=== PATIENT | female | born 1985 | race Caucasian/White ===

== ENCOUNTER 2016-07-07 07:49 | Emergency (ER) | payer OTHER ==
[~2016-07-07] VITALS: Ht 165.1 cm; Wt 99.0 kg
[~2016-07-07 07:49] MED LIST: ATARAX,VISTARIL25 MG PO; BACTRIM,SEPT1 TABLET PO; BACTROBAN OINTM22 GM TP; BUPRENORPHIN-N1 EACH SL; BUPRENORPHINE HC8 MG SL; BUSPAR10 MG PO; BUSPAR15 MG PO; CATAPRES0.1 MG PO; CLINDAMYCIN HC300 MG PO; CLONAZEPAM0.5 MG PO; CLONIDINE HCL0.1 MG PO; CLONIDINE HCL0.2 MG PO; CYMBALTA30 MG PO; CYMBALTA60 MG PO; DEPAKOTE ER250 MG PO; DIVALPROEX SOD250 MG PO; DIVALPROEX SOD500 M1 PO; DOLOPHINE HCL10 MG PO; DULOXETINE HCL30 MG PO; FOLIC ACID1 MG PO; GABAPENTIN600 MG PO; GABAPENTIN800 MG PO; HYDROXYZINE PAM25 MG PO; HYDROXYZINE PAM50 MG PO; IBUPROFEN800 MG PO; IMODIUM A-D2 MG PO; KEFLEX500 MG PO; KLONOPIN1 MG; KLONOPIN1 MG PO; KWELL TP; LABETALOL HCL100 MG PO; LIBRIUM25 MG PO; METHADONE10 MG PO; METHADONE10 MG/1 M1 PO; MOTRIN800 MG PO; MULTIVITAMIN1 EAC2 PO; NAPROXEN500 MG PO; NEURONTIN300 MG PO; NICOTINE PATCH1 EAC2 TD; NORCO 10/3251 TABLET PO; PEN-VEE K,VEET500 MG PO; PERMETHRIN118 ML TP; PROAIR HFA8.5 GM IH; PROMETHAZINE HC25 M1 PO; QUETIAPINE FUM400 MG PO; QUETIAPINE FUMA50 MG PO; SEROQUEL XR50 MG PO; SEROQUEL200 MG PO; SEROQUEL400 MG PO; SEROQUEL50 MG PO; TRAZODONE HCL50 MG PO; VITAMIN B-1100 MG PO; XANAX XR2 MG PO; XANAX2 MG PO; ZOFRAN8 MG PO; ZOLPIDEM TARTRAT5 MG PO
[2016-07-07] MEDS ORDERED: IBUPROFEN800 MG PO (08:05)
[2016-07-07] MEDS ORDERED: PEN-VEE K,VEET500 MG PO (08:05)
[2016-07-07] MEDS ORDERED: AMPHETAMINE SAL20 MG PO (08:07)
[2016-07-07] MEDS ORDERED: MOTRIN800 MG PO (08:16)
[2016-07-07 08:33] VITALS: BP 171/104
== END 2016-07-07 08:56 | disposition home or self-care (01) ==
LOC: EME 07:49
PROC: 3E0T3BZ Introduction of Anesthetic Agent into Peripheral Nerves and Plexi, Percutaneous Approach (ICD-10-PCS; principal; 2016-07-07)
DX: K02.9 Dental caries, unspecified (principal); F11.20 Opioid dependence, uncomplicated; F17.200 Nicotine dependence, unspecified, uncomplicated
CPT/HCPCS: 99281; 99283

== ENCOUNTER 2016-08-17 10:21 | Emergency (ER) | payer OTHER ==
[~2016-08-17] VITALS: Ht 167.6 cm; Wt 90.8 kg
[~2016-08-17 10:21] MED LIST changes: +AMPHETAMINE SAL20 MG PO
[2016-08-17 11:13] LABS: EOSINOPHIL (%) 0.2 % (0-5); HEMATOCRIT 46.8 % (36.0-46.0); IMMATURE GRANULOCYTE (%) 0.7 % (0.0-0.7); IMMATURE GRANULOCYTE COUNT 0.1 K/uL; MCHC 33.3 G/DL (30.0-36.0); MEAN PLAT.VOLUME 10.6 uM^3 (9.5-12.4); MONOCYTE (%) 7.4 % (3-12); MONOCYTE COUNT 0.8 K/uL (0-0.8); NEUTROPHIL (%) 64.1 % (45-76); PLATELET COUNT 289 K/uL (156-360); RBC DIS.WIDTH-CV 12.5 % (11.8-14.6); RBC DIS.WIDTH-SD 42.5 % (39-53); RED BLOOD COUNT 5.03 M/uL (3.80-5.20); WHITE BLOOD COUNT 10.9 K/uL (4.1-10.2)
[2016-08-17 11:17] LABS: ADD MIUA? YES; BILIRUBIN NEGATIVE; BLOOD NEGATIVE; COLOR YELLOW ((YELLOW)); GLUCOSE (STRIP) NEGATIVE; KETONES 5; LEUKOCYTES NEGATIVE; NITRITE NEGATIVE; PROTEIN (STRIP) 100; SPECIFIC GRAVITY 1.013 (1.000-1.030); UROBILINOGEN 0.2 MG/DL (0.2-1.0)
[2016-08-17 11:23] LABS: CHLORIDE 101 mEq/L (99-109); POTASSIUM 3.8 mEq/L (3.7-5.4); SODIUM 138 mEq/L (136-147)
[2016-08-17 11:23] LABS: AMPHETAMINE PRESUMPTIVE POSITIVE (500 ng/mL); BACTERIA RARE /HPF; BARBITURATES NEGATIVE (200 ng/mL); BENZODIAZEPINES NEGATIVE (150 ng/mL); COCAINE NEGATIVE (150 ng/mL); EPITHELIAL CELLS 4+ /HPF; INTERNAL CONTROLS VALID? YES; METHADONE NEGATIVE (200 ng/mL); METHAMPHETAMINE NEGATIVE (500 ng/mL); MUCUS 1+ /LPF; OPIATES (MORPHINE) NEGATIVE (100 ng/mL); OXYCODONE NEGATIVE (100 ng/mL); PHENCYCLIDINE NEGATIVE (25 ng/mL); PROPOXYPHENE NEGATIVE (300 ng/mL); RED BLOOD CELLS 0-5 /HPF (0-5); THC CANNABINOIDS NEGATIVE (50 ng/mL); TRICYCLIC ANTIDEPRESSANTS PRESUMPTIVE POSITIVE (300 ng/mL); WHITE BLOOD CELLS 0-5 /HPF (0-5)
[2016-08-17 11:24] LABS: ADD MEDTOX COMMENT Y
[2016-08-17 11:26] LABS: GLUCOSE 122 mg/dL (70-99)
[2016-08-17 11:27] LABS: ANION GAP 14 MEQ/L (2-14); TOTAL BILIRUBIN 0.4 mg/dL (0.0-1.0)
[2016-08-17 11:29] LABS: ALKALINE PHOSPHATASE 120 IU/L (3-129); GFR ESTIMATE (CALCULATED) > 59 mL/min/; SERUM ETHYL ALCOHOL < 10 mg/dL
[2016-08-17 11:30] LABS: UREA NITROGEN (BUN) 7 mg/dL (9-23)
[2016-08-17 11:31] LABS: DIRECT BILIRUBIN 0.1 mg/dL (0.0-0.3)
[2016-08-17 11:38] LABS: QUANTITATIVE HCG < 4.0 MIU/ML
[2016-08-17 12:38] VITALS: BP 180/87
== END 2016-08-17 12:39 | disposition home or self-care (01) ==
LOC: EME 10:21
PROVIDERS: Emergency Medicine
DX: F19.10 Other psychoactive substance abuse, uncomplicated (principal); K21.9 Gastro-esophageal reflux disease without esophagitis; F17.200 Nicotine dependence, unspecified, uncomplicated
CPT/HCPCS: 80048; 80076; 81003; 84702; 84999; 85025; 99281; 99284; G0480

== ENCOUNTER 2016-08-23 10:49 | Inpatient (IN) | payer OTHER ==
[~2016-08-23] VITALS: Ht 167.6 cm; Wt 89.4 kg
[2016-08-23 12:44] LABS: INTERNAL CONTROL VALID? YES
[2016-08-23 12:53] LABS: AMPHETAMINE PRESUMPTIVE POSITIVE (500 ng/mL); BARBITURATES NEGATIVE (200 ng/mL); BENZODIAZEPINES NEGATIVE (150 ng/mL); COCAINE NEGATIVE (150 ng/mL); METHADONE NEGATIVE (200 ng/mL); METHAMPHETAMINE NEGATIVE (500 ng/mL); OPIATES (MORPHINE) NEGATIVE (100 ng/mL); PHENCYCLIDINE NEGATIVE (25 ng/mL); THC CANNABINOIDS NEGATIVE (50 ng/mL); TRICYCLIC ANTIDEPRESSANTS PRESUMPTIVE POSITIVE (300 ng/mL)
[2016-08-23] MEDS ORDERED: ABILIFY2 MG PO (12:53)
[2016-08-23 12:54] LABS: ADD MEDTOX COMMENT Y; INTERNAL CONTROLS VALID? YES; OXYCODONE NEGATIVE (100 ng/mL); PROPOXYPHENE NEGATIVE (300 ng/mL)
[2016-08-23] MEDS ORDERED: DEPAKOTE500 MG PO (12:54)
[2016-08-23] MEDS ORDERED: DEPAKOTE250 MG PO (12:54)
[2016-08-23] MEDS ORDERED: ADDERALL20 MG PO (12:55)
[2016-08-23] MEDS ORDERED: SUBOXONE 8 MG-1 EAC2 SL (12:55)
[2016-08-23] MEDS ORDERED: SEROQUEL400 MG PO (12:56)
[2016-08-23] MEDS ORDERED: SEROQUEL100 MG PO (12:56)
[2016-08-23 12:57] LABS: HEMATOCRIT 44.5 % (36.0-46.0); MCH 30.9 PG (29.0-34.0); MCHC 32.6 G/DL (30.0-36.0); MCV 94.9 FL (83-99); RBC DIS.WIDTH-CV 12.5 % (11.8-14.6); RBC DIS.WIDTH-SD 43.4 % (39-53); RED BLOOD COUNT 4.69 M/uL (3.80-5.20); WHITE BLOOD COUNT 8.6 K/uL (4.1-10.2)
[2016-08-23 13:02] LABS: CHLORIDE 107 mEq/L (99-109); POTASSIUM 4.3 mEq/L (3.7-5.4); SODIUM 141 mEq/L (136-147)
[2016-08-23 13:03] LABS: GLUCOSE 92 mg/dL (70-99)
[2016-08-23 13:05] LABS: ANION GAP 13 MEQ/L (2-14)
[2016-08-23 13:07] LABS: GFR ESTIMATE (CALCULATED) > 59 mL/min/; SERUM ETHYL ALCOHOL < 10 mg/dL
[2016-08-23 13:08] LABS: UREA NITROGEN (BUN) 10 mg/dL (9-23)
[2016-08-23] MEDS ORDERED: MOTRIN800 MG PO (14:14)
[2016-08-23] MEDS ORDERED: GARCINIA CAMBO1 EACH PO (14:16)
[2016-08-23 15:21] VITALS: BP 151/89
[2016-08-23 15:37] LABS: MEAN PLAT.VOLUME 10.2 uM^3 (9.5-12.4)
[2016-08-23 15:40] LABS: PLATELET COUNT 202 K/uL (156-360)
[2016-08-23] MEDS ORDERED: QUETIAPINE FUM300 MG PO (16:29)
[2016-08-24 08:15] VITALS: BP 128/74
[2016-08-24 15:38] VITALS: BP 125/74
[2016-08-25 07:44] VITALS: BP 126/82
[2016-08-25 16:10] VITALS: BP 119/72
[2016-08-26 07:57] VITALS: BP 117/72
[2016-08-26 08:00] VITALS: BP 117/72
[2016-08-26 15:41] VITALS: BP 124/72
[2016-08-27 07:29] VITALS: BP 124/66
[2016-08-27 15:34] VITALS: BP 125/71
[2016-08-28 07:51] VITALS: BP 128/72
== END 2016-08-28 12:36 | disposition home or self-care (01) | DRG 885 ==
LOC: EME 10:49 → EDOF 13:41 → 1WEST 13:41
PROVIDERS: Emergency Medicine
DX: F33.1 Major depressive disorder, recurrent, moderate (principal); F11.21 Opioid dependence, in remission; R45.851 Suicidal ideations; E66.9 Obesity, unspecified; Z68.31 Body mass index [BMI] 31.0-31.9, adult
CPT/HCPCS: 80048; 84703; 84999; 85027; 90839; 97150 GO; 97166 GO; 99281; 99285; G0480; J0574

== ENCOUNTER 2016-09-16 07:57 | Inpatient (IN) | payer OTHER ==
[~2016-09-16] VITALS: Ht 167.6 cm; Wt 90.9 kg
[~2016-09-16 07:57] MED LIST changes: +ABILIFY2 MG PO; +ADDERALL20 MG PO; +DEPAKOTE250 MG PO; +DEPAKOTE500 MG PO; +GARCINIA CAMBO1 EACH PO; +QUETIAPINE FUM300 MG PO; +SEROQUEL100 MG PO; +SUBOXONE 8 MG-1 EAC2 SL
[2016-09-16 09:07] LABS: EOSINOPHIL (%) 0.9 % (0-5); EOSINOPHIL COUNT 0.1 K/uL (0-0.3); HEMATOCRIT 43.5 % (36.0-46.0); IMMATURE GRANULOCYTE (%) 0.2 % (0.0-0.7); INSTRUMENT ABS NEUTROPHIL CT 5.4 K/uL; LYMPHOCYTE COUNT 2.6 K/uL (1.0-2.8); MCH 30.6 PG (29.0-34.0); MCHC 33.6 G/DL (30.0-36.0); MCV 91.2 FL (83-99); MEAN PLAT.VOLUME 10.6 uM^3 (9.5-12.4); MONOCYTE (%) 5.7 % (3-12); MONOCYTE COUNT 0.5 K/uL (0-0.8); NEUTROPHIL (%) 62.7 % (45-76); NEUTROPHIL COUNT 5.4 K/uL (1.8-6.4); PLATELET COUNT 256 K/uL (156-360); RBC DIS.WIDTH-CV 12.1 % (11.8-14.6); RBC DIS.WIDTH-SD 40.6 % (39-53); RED BLOOD COUNT 4.77 M/uL (3.80-5.20); WHITE BLOOD COUNT 8.6 K/uL (4.1-10.2)
[2016-09-16 09:14] LABS: CHLORIDE 108 mEq/L (99-109); SODIUM 143 mEq/L (136-147)
[2016-09-16 09:15] LABS: GLUCOSE 79 mg/dL (70-99)
[2016-09-16 09:17] LABS: ANION GAP 14 MEQ/L (2-14)
[2016-09-16 09:18] LABS: SERUM ETHYL ALCOHOL < 10 mg/dL
[2016-09-16 09:19] LABS: GFR ESTIMATE (CALCULATED) > 59 mL/min/
[2016-09-16 09:20] LABS: UREA NITROGEN (BUN) 11 mg/dL (9-23)
[2016-09-16 09:30] LABS: ADD MIUA? YES; BILIRUBIN NEGATIVE; BLOOD NEGATIVE; GLUCOSE (STRIP) NEGATIVE; KETONES NEGATIVE; LEUKOCYTES MODERATE; NITRITE NEGATIVE; PROTEIN (STRIP) 100; SPECIFIC GRAVITY 1.029 (1.000-1.030)
[2016-09-16 09:32] LABS: QUANTITATIVE HCG < 4.0 MIU/ML
[2016-09-16 09:34] LABS: COLOR YELLOW ((YELLOW))
[2016-09-16 09:54] LABS: ADD MEDTOX COMMENT Y; AMPHETAMINE PRESUMPTIVE POSITIVE (500 ng/mL); BARBITURATES NEGATIVE (200 ng/mL); BENZODIAZEPINES PRESUMPTIVE POSITIVE (150 ng/mL); COCAINE NEGATIVE (150 ng/mL); INTERNAL CONTROLS VALID? YES; METHADONE NEGATIVE (200 ng/mL); METHAMPHETAMINE NEGATIVE (500 ng/mL); OPIATES (MORPHINE) NEGATIVE (100 ng/mL); OXYCODONE NEGATIVE (100 ng/mL); PHENCYCLIDINE NEGATIVE (25 ng/mL); PROPOXYPHENE NEGATIVE (300 ng/mL); THC CANNABINOIDS NEGATIVE (50 ng/mL); TRICYCLIC ANTIDEPRESSANTS PRESUMPTIVE POSITIVE (300 ng/mL)
[2016-09-16 09:59] LABS: AMORPHOUS URATES CRYSTALS 3+; BACTERIA NONE SEEN /HPF; CASTS NONE SEEN /LPF; CRYSTALS PRESENT; EPITHELIAL CELLS 3+ /HPF; MUCUS NONE SEEN /LPF; RED BLOOD CELLS 0-5 /HPF (0-5); WHITE BLOOD CELLS 0-5 /HPF (0-5)
[2016-09-16 10:39] LABS: BENZODIAZEPINES QUANT VALUE 0 NG/ML
[2016-09-16 10:44] LABS: BENZODIAZEPINES, URINE SCREEN Negative (200 ng/mL)
[2016-09-16] MEDS ORDERED: IBUPROFEN800 MG PO (11:57)
[2016-09-16] MEDS ORDERED: QUETIAPINE FUM300 MG PO (11:57)
[2016-09-16 12:00] VITALS: BP 140/95
[2016-09-16 12:01] VITALS: BP 140/95
[2016-09-16 15:50] VITALS: BP 138/67
[2016-09-17 08:02] VITALS: BP 114/74
[2016-09-17 15:18] VITALS: BP 113/56
[2016-09-18 07:40] VITALS: BP 137/73
[2016-09-18 15:14] VITALS: BP 133/93
[2016-09-19 09:10] VITALS: BP 134/79
[2016-09-19 15:26] VITALS: BP 125/73
[2016-09-20 07:55] VITALS: BP 140/78
[2016-09-20 15:34] VITALS: BP 136/86
[2016-09-21 08:03] VITALS: BP 116/65
[2016-09-21 15:56] VITALS: BP 113/65
[2016-09-22 07:34] VITALS: BP 115/76
[2016-09-22 15:21] VITALS: BP 108/55
[2016-09-23 08:00] VITALS: BP 135/79
[2016-09-23] MEDS ORDERED: QUETIAPINE FUM300 MG PO (09:34)
[2016-09-23] MEDS ORDERED: SEROQUEL100 MG PO (09:34)
[2016-09-23] MEDS ORDERED: PRAZOSIN HCL1 MG PO (09:34)
[2016-09-23] MEDS ORDERED: DULOXETINE HCL60 MG PO (09:34)
[2016-09-23] MEDS ORDERED: DEPAKOTE500 MG PO (09:34)
== END 2016-09-23 12:29 | disposition home or self-care (01) | DRG 885 ==
LOC: EME 07:57 → EDOF 10:27 → 1WEST 10:27
PROVIDERS: Physician Assistant
DX: F33.9 Major depressive disorder, recurrent, unspecified (principal); F60.9 Personality disorder, unspecified; R45.851 Suicidal ideations; K21.9 Gastro-esophageal reflux disease without esophagitis; I10 Essential (primary) hypertension
CPT/HCPCS: 80048; 80164; 81003; 84702; 84999; 85025; 90839; 97150 GO; 97165 GO; 99281; 99284; G0480; J0574; Q0177

== ENCOUNTER 2016-10-25 07:44 | Emergency (ER) | payer OTHER ==
[~2016-10-25] VITALS: Ht 167.6 cm; Wt 92.4 kg
[~2016-10-25 07:44] MED LIST changes: +DULOXETINE HCL60 MG PO; +PRAZOSIN HCL1 MG PO
[2016-10-25 08:46] VITALS: BP 148/89
== END 2016-10-25 08:46 | disposition left against medical advice (07) ==
LOC: EME 07:44
DX: T50.991A Poisoning by other drugs, medicaments and biological substances, accidental (unintentional), initial encounter (principal); F17.200 Nicotine dependence, unspecified, uncomplicated
CPT/HCPCS: 99281; 99284

== ENCOUNTER 2016-11-02 15:59 | Emergency (ER) | payer OTHER ==
[~2016-11-02] VITALS: Ht 167.6 cm; Wt 95.4 kg
[2016-11-02 16:38] VITALS: BP 175/104
== END 2016-11-02 16:39 | disposition left against medical advice (07) ==
LOC: EME 15:59
DX: T50.991A Poisoning by other drugs, medicaments and biological substances, accidental (unintentional), initial encounter (principal); F31.9 Bipolar disorder, unspecified; G40.909 Epilepsy, unspecified, not intractable, without status epilepticus; F17.200 Nicotine dependence, unspecified, uncomplicated
CPT/HCPCS: 99281; 99283

== ENCOUNTER 2016-12-31 05:30 | Emergency (ER) | payer OTHER ==
[~2016-12-31] VITALS: Ht 167.6 cm; Wt 96.0 kg
[2016-12-31] MEDS ORDERED: ATARAX,VISTARIL25 MG PO (06:46)
[2016-12-31 07:29] VITALS: BP 136/96
== END 2016-12-31 07:40 | disposition home or self-care (01) ==
LOC: EME → EDBD 05:30 → EME 07:40
DX: G47.00 Insomnia, unspecified (principal); F41.9 Anxiety disorder, unspecified; F17.200 Nicotine dependence, unspecified, uncomplicated
CPT/HCPCS: 99281; 99283

== ENCOUNTER 2017-01-07 23:25 | Emergency (ER) | payer OTHER ==
[~2017-01-07] VITALS: Ht 167.6 cm; Wt 93.6 kg
[2017-01-07 23:37] VITALS: BP 146/92
[2017-01-08 00:44] LABS: HEMATOCRIT 39.3 % (36.0-46.0); MCH 30.6 PG (29.0-34.0); MCHC 33.6 G/DL (30.0-36.0); MEAN PLAT.VOLUME 10.4 uM^3 (9.5-12.4); PLATELET COUNT 249 K/uL (156-360); RBC DIS.WIDTH-SD 40.6 % (39-53); RED BLOOD COUNT 4.32 M/uL (3.80-5.20); WHITE BLOOD COUNT 11.7 K/uL (4.1-10.2)
[2017-01-08 00:57] LABS: CHLORIDE 102 mEq/L (99-109); POTASSIUM 4.3 mEq/L (3.7-5.4); SODIUM 137 mEq/L (136-147)
[2017-01-08 00:59] LABS: GLUCOSE 76 mg/dL (70-99)
[2017-01-08 01:00] LABS: ANION GAP 11 MEQ/L (2-14)
[2017-01-08 01:02] LABS: SERUM ETHYL ALCOHOL < 10 mg/dL
[2017-01-08 01:03] LABS: GFR ESTIMATE (CALCULATED) > 59 mL/min/
[2017-01-08 01:04] LABS: UREA NITROGEN (BUN) 8 mg/dL (9-23)
[2017-01-08 01:14] LABS: QUANTITATIVE HCG < 4.0 MIU/ML
== END 2017-01-08 01:30 | disposition left against medical advice (07) ==
LOC: EME 23:25
DX: F32.9 Major depressive disorder, single episode, unspecified (principal); Z53.21 Procedure and treatment not carried out due to patient leaving prior to being seen by health care provider
CPT/HCPCS: 80048; 84702; 85027; G0480

== ENCOUNTER 2017-01-09 01:36 | Inpatient (IN) | payer OTHER ==
[~2017-01-09] VITALS: Ht 167.6 cm; Wt 91.8 kg
[2017-01-09 03:02] LABS: EOSINOPHIL (%) 1.3 % (0-5); EOSINOPHIL COUNT 0.2 K/uL (0-0.3); HEMATOCRIT 42.1 % (36.0-46.0); IMMATURE GRANULOCYTE (%) 0.9 % (0.0-0.7); IMMATURE GRANULOCYTE COUNT 0.1 K/uL; INSTRUMENT ABS NEUTROPHIL CT 8.1 K/uL; LYMPHOCYTE COUNT 3.2 K/uL (1.0-2.8); MCH 30.1 PG (29.0-34.0); MCHC 32.8 G/DL (30.0-36.0); MCV 91.7 FL (83-99); MEAN PLAT.VOLUME 9.9 uM^3 (9.5-12.4); MONOCYTE COUNT 1.2 K/uL (0-0.8); NEUTROPHIL (%) 63.6 % (45-76); NEUTROPHIL COUNT 8.1 K/uL (1.8-6.4); PLATELET COUNT 292 K/uL (156-360); RBC DIS.WIDTH-CV 12.3 % (11.8-14.6); RBC DIS.WIDTH-SD 41.1 % (39-53); RED BLOOD COUNT 4.59 M/uL (3.80-5.20); WHITE BLOOD COUNT 12.8 K/uL (4.1-10.2)
[2017-01-09 03:08] LABS: AMPHETAMINE NEGATIVE (500 ng/mL); BARBITURATES NEGATIVE (200 ng/mL); BENZODIAZEPINES NEGATIVE (150 ng/mL); COCAINE NEGATIVE (150 ng/mL); INTERNAL CONTROLS VALID? YES; METHADONE NEGATIVE (200 ng/mL); METHAMPHETAMINE NEGATIVE (500 ng/mL); OPIATES (MORPHINE) NEGATIVE (100 ng/mL); OXYCODONE NEGATIVE (100 ng/mL); PHENCYCLIDINE NEGATIVE (25 ng/mL); PROPOXYPHENE NEGATIVE (300 ng/mL); THC CANNABINOIDS NEGATIVE (50 ng/mL); TRICYCLIC ANTIDEPRESSANTS PRESUMPTIVE POSITIVE (300 ng/mL)
[2017-01-09 03:14] LABS: CHLORIDE 101 mEq/L (99-109); POTASSIUM 3.8 mEq/L (3.7-5.4); SODIUM 138 mEq/L (136-147)
[2017-01-09 03:16] LABS: GLUCOSE 75 mg/dL (70-99)
[2017-01-09 03:17] LABS: ANION GAP 14 MEQ/L (2-14)
[2017-01-09 03:19] LABS: SERUM ETHYL ALCOHOL < 10 mg/dL
[2017-01-09 03:20] LABS: GFR ESTIMATE (CALCULATED) > 59 mL/min/
[2017-01-09 03:21] LABS: UREA NITROGEN (BUN) 7 mg/dL (9-23)
[2017-01-09 04:58] VITALS: BP 145/69
[2017-01-09 07:45] VITALS: BP 109/56
[2017-01-09 15:39] VITALS: BP 108/72
[2017-01-10 07:51] VITALS: BP 114/66
[2017-01-10 15:26] VITALS: BP 125/68
[2017-01-11 07:46] VITALS: BP 145/65
[2017-01-11 16:13] VITALS: BP 118/61
[2017-01-12 08:23] LABS: HEMATOCRIT 43.3 % (36.0-46.0); MCH 31.7 PG (29.0-34.0); MCHC 33.7 G/DL (30.0-36.0); MCV 94.1 FL (83-99); MEAN PLAT.VOLUME 9.9 uM^3 (9.5-12.4); PLATELET COUNT 311 K/uL (156-360); RBC DIS.WIDTH-CV 12.3 % (11.8-14.6); WHITE BLOOD COUNT 11.7 K/uL (4.1-10.2)
[2017-01-12 08:53] VITALS: BP 150/78
[2017-01-12 16:33] VITALS: BP 147/84
[2017-01-13 07:49] VITALS: BP 147/61
[2017-01-13 11:34] VITALS: BP 118/82
[2017-01-13 15:26] VITALS: BP 124/73
[2017-01-14 07:33] VITALS: BP 136/77
== END 2017-01-14 11:25 | disposition home or self-care (01) | DRG 881 ==
LOC: EME 01:36 → EDOF 03:30 → 1WEST 03:30 → ENRESERV 04:37 → 1WEST 04:54
PROVIDERS: Emergency Medicine; Psychiatry & Neurology Psychiatry
DX: F32.9 Major depressive disorder, single episode, unspecified (principal); F25.9 Schizoaffective disorder, unspecified; F11.20 Opioid dependence, uncomplicated; T43.622A Poisoning by amphetamines, intentional self-harm, initial encounter; F19.959 Other psychoactive substance use, unspecified with psychoactive substance-induced psychotic disorder, unspecified; F17.200 Nicotine dependence, unspecified, uncomplicated; F41.9 Anxiety disorder, unspecified; I10 Essential (primary) hypertension; K21.9 Gastro-esophageal reflux disease without esophagitis; F60.9 Personality disorder, unspecified; Z79.899 Other long term (current) drug therapy; Z68.33 Body mass index [BMI] 33.0-33.9, adult; Z91.14 Patient's other noncompliance with medication regimen
CPT/HCPCS: 80048; 84702; 85025; 85027; 90839; 97150 GO; 97165 GO; 99281; 99285; G0480; J0574; Q0177

== ENCOUNTER → 2017-02-24 20:16 | Emergency (ER) | payer OTHER ==
[~2017-02-24] VITALS: Ht 167.6 cm; Wt 92.7 kg
[2017-02-24 20:24] VITALS: BP 182/98
== END | disposition left against medical advice (07) ==
LOC: EME 20:16
DX: R07.9 Chest pain, unspecified (principal); R07.0 Pain in throat; Z53.21 Procedure and treatment not carried out due to patient leaving prior to being seen by health care provider
CPT/HCPCS: 80048; 84484; 85027; 93005

== ENCOUNTER 2017-02-26 04:00 | Emergency (ER) | payer OTHER ==
[~2017-02-26] VITALS: Ht 160 cm; Wt 86.1 kg
[2017-02-26 05:15] LABS: HEMATOCRIT 39.1 % (36.0-46.0); MCH 30.4 PG (29.0-34.0); MCHC 33.2 G/DL (30.0-36.0); MCV 91.6 FL (83-99); MEAN PLAT.VOLUME 9.8 uM^3 (9.5-12.4); PLATELET COUNT 246 K/uL (156-360); RBC DIS.WIDTH-CV 13.2 % (11.8-14.6); RBC DIS.WIDTH-SD 44.1 % (39-53); RED BLOOD COUNT 4.27 M/uL (3.80-5.20); WHITE BLOOD COUNT 8.4 K/uL (4.1-10.2)
[2017-02-26 05:21] LABS: POTASSIUM ND MEQ/L (3.7-5.4)
[2017-02-26 05:25] LABS: CHLORIDE 104 mEq/L (99-109); SODIUM 137 mEq/L (136-147)
[2017-02-26 05:27] LABS: GLUCOSE 126 mg/dL (70-99)
[2017-02-26 05:28] LABS: ANION GAP 9 MEQ/L (2-14)
[2017-02-26 05:30] LABS: SERUM ETHYL ALCOHOL < 10 mg/dL
[2017-02-26 05:31] LABS: GFR ESTIMATE (CALCULATED) > 59 mL/min/
[2017-02-26 05:32] LABS: UREA NITROGEN (BUN) 14 mg/dL (9-23)
[2017-02-26 05:39] LABS: QUANTITATIVE HCG < 4.0 MIU/ML
[2017-02-26 05:48] LABS: ADD MIUA? YES; BILIRUBIN SMALL; BLOOD NEGATIVE; COLOR AMBER ((YELLOW)); GLUCOSE (STRIP) NEGATIVE; KETONES 5; LEUKOCYTES TRACE; NITRITE NEGATIVE; PROTEIN (STRIP) 30
[2017-02-26 05:50] LABS: PHENCYCLIDINE NEGATIVE (25 ng/mL); THC CANNABINOIDS NEGATIVE (50 ng/mL)
[2017-02-26 05:51] LABS: ADD MEDTOX COMMENT Y; AMPHETAMINE PRESUMPTIVE POSITIVE (500 ng/mL); BARBITURATES NEGATIVE (200 ng/mL); BENZODIAZEPINES NEGATIVE (150 ng/mL); COCAINE NEGATIVE (150 ng/mL); INTERNAL CONTROLS VALID? YES; METHADONE NEGATIVE (200 ng/mL); METHAMPHETAMINE NEGATIVE (500 ng/mL); OPIATES (MORPHINE) NEGATIVE (100 ng/mL); OXYCODONE NEGATIVE (100 ng/mL); PROPOXYPHENE NEGATIVE (300 ng/mL); TRICYCLIC ANTIDEPRESSANTS PRESUMPTIVE POSITIVE (300 ng/mL)
[2017-02-26] MEDS ORDERED: CYMBALTA60 MG PO (06:13)
[2017-02-26] MEDS ORDERED: ADDERALL20 MG PO (06:14)
[2017-02-26 06:25] LABS: BACTERIA RARE /HPF; EPITHELIAL CELLS 2+ /HPF; MUCUS 1+ /LPF; UCUL ADDED? NO; WHITE BLOOD CELLS 0-5 /HPF (0-5)
[2017-02-26 11:49] VITALS: BP 135/84
== END 2017-02-26 12:00 ==
LOC: EME → EDBD 04:00 → EME 12:00
PROVIDERS: Emergency Medicine
DX: R44.2 Other hallucinations (principal); R44.0 Auditory hallucinations; L29.0 Pruritus ani; R45.851 Suicidal ideations; F33.2 Major depressive disorder, recurrent severe without psychotic features; F60.9 Personality disorder, unspecified; K21.9 Gastro-esophageal reflux disease without esophagitis; F17.200 Nicotine dependence, unspecified, uncomplicated
CPT/HCPCS: 80048; 81003; 84702; 84999; 85027; 90837; 99281; 99285; G0480; J0574

== ENCOUNTER 2017-03-10 15:42 | Emergency (ER) | payer OTHER ==
[~2017-03-10] VITALS: Ht 167.6 cm; Wt 94.4 kg
[2017-03-10 16:36] LABS: HEMATOCRIT 41.3 % (36.0-46.0); MCH 30.8 PG (29.0-34.0); MCHC 33.2 G/DL (30.0-36.0); MCV 92.8 FL (83-99); MEAN PLAT.VOLUME 10.6 uM^3 (9.5-12.4); PLATELET COUNT 205 K/uL (156-360); RBC DIS.WIDTH-CV 12.9 % (11.8-14.6); RBC DIS.WIDTH-SD 44.1 % (39-53); RED BLOOD COUNT 4.45 M/uL (3.80-5.20); WHITE BLOOD COUNT 7.5 K/uL (4.1-10.2)
[2017-03-10 16:39] LABS: ADD MIUA? YES; BILIRUBIN NEGATIVE; BLOOD NEGATIVE; COLOR YELLOW ((YELLOW)); GLUCOSE (STRIP) NEGATIVE; KETONES NEGATIVE; LEUKOCYTES MODERATE; NITRITE NEGATIVE; PROTEIN (STRIP) NEGATIVE; SPECIFIC GRAVITY 1.026 (1.000-1.030)
[2017-03-10 16:45] LABS: CHLORIDE 107 mEq/L (99-109); SODIUM 139 mEq/L (136-147)
[2017-03-10 16:47] LABS: GLUCOSE 92 mg/dL (70-99)
[2017-03-10 16:48] LABS: ANION GAP 8 MEQ/L (2-14)
[2017-03-10 16:49] LABS: TOTAL BILIRUBIN 0.3 mg/dL (0.0-1.0)
[2017-03-10 16:51] LABS: ALKALINE PHOSPHATASE 83 IU/L (3-129); GFR ESTIMATE (CALCULATED) > 59 mL/min/
[2017-03-10 16:52] LABS: UREA NITROGEN (BUN) 14 mg/dL (9-23)
[2017-03-10 16:52] LABS: BACTERIA NONE SEEN /HPF; EPITHELIAL CELLS 1+ /HPF; MUCUS TRACE /LPF; RED BLOOD CELLS 0-5 /HPF (0-5); UCUL ADDED? YES; UNCLASSIFIED CASTS 0-5 /LPF
[2017-03-10 17:00] LABS: QUANTITATIVE HCG < 4.0 MIU/ML
[2017-03-10 17:35] VITALS: BP 116/83
[2017-03-10 17:53] LABS: AMPHETAMINE PRESUMPTIVE POSITIVE (500 ng/mL); BARBITURATES NEGATIVE (200 ng/mL); BENZODIAZEPINES NEGATIVE (150 ng/mL); COCAINE NEGATIVE (150 ng/mL); INTERNAL CONTROLS VALID? YES; METHADONE NEGATIVE (200 ng/mL); METHAMPHETAMINE NEGATIVE (500 ng/mL); OPIATES (MORPHINE) NEGATIVE (100 ng/mL); OXYCODONE NEGATIVE (100 ng/mL); PHENCYCLIDINE NEGATIVE (25 ng/mL); PROPOXYPHENE NEGATIVE (300 ng/mL); THC CANNABINOIDS NEGATIVE (50 ng/mL); TRICYCLIC ANTIDEPRESSANTS PRESUMPTIVE POSITIVE (300 ng/mL)
[2017-03-10 17:54] LABS: ADD MEDTOX COMMENT Y
[2017-03-16] MEDS ORDERED: CATAPRES0.1 MG PO (04:59)
[2017-03-16] MEDS ORDERED: CLONIDINE HCL0.1 MG PO (08:17)
== END 2017-03-10 17:37 | disposition left against medical advice (07) ==
LOC: EME 15:42
PROVIDERS: Nurse Practitioner Family
DX: R44.1 Visual hallucinations (principal); Z53.20 Procedure and treatment not carried out because of patient's decision for unspecified reasons; F17.200 Nicotine dependence, unspecified, uncomplicated
CPT/HCPCS: 80053; 81003; 84702; 84999; 85027; 87086 GA; 99281; 99283

== ENCOUNTER 2017-05-09 16:32 | Inpatient (IN) | payer OTHER ==
[~2017-05-09] VITALS: Ht 165.1 cm; Wt 90.3 kg
[~2017-05-09 16:32] MED LIST changes: +BENZTROPINE MESY1 MG PO; +DIVALPROEX SOD500 MG PO; +INDERAL10 MG PO; +ZYPREXA20 MG PO
[2017-05-09 17:30] LABS: EOSINOPHIL (%) 0 % (0-5); HEMATOCRIT 38.7 % (36.0-46.0); IMMATURE GRANULOCYTE (%) 1.2 % (0.0-0.7); IMMATURE GRANULOCYTE COUNT 0.2 K/uL; INSTRUMENT ABS NEUTROPHIL CT 12.2 K/uL; LYMPHOCYTE COUNT 0.8 K/uL (1.0-2.8); MCH 30.8 PG (29.0-34.0); MCHC 34.1 G/DL (30.0-36.0); MCV 90.2 FL (83-99); MEAN PLAT.VOLUME 11.2 uM^3 (9.5-12.4); MONOCYTE (%) 9.2 % (3-12); MONOCYTE COUNT 1.4 K/uL (0-0.8); NEUTROPHIL (%) 83.9 % (45-76); NEUTROPHIL COUNT 12.2 K/uL (1.8-6.4); PLATELET COUNT 170 K/uL (156-360); RBC DIS.WIDTH-CV 12.4 % (11.8-14.6); RBC DIS.WIDTH-SD 40.6 % (39-53); RED BLOOD COUNT 4.29 M/uL (3.80-5.20); WHITE BLOOD COUNT 14.6 K/uL (4.1-10.2)
[2017-05-09 17:38] LABS: CHLORIDE 97 mEq/L (99-109); POTASSIUM 3.5 mEq/L (3.7-5.4); SODIUM 130 mEq/L (136-147)
[2017-05-09 17:41] LABS: GLUCOSE 110 mg/dL (70-99)
[2017-05-09 17:42] LABS: ANION GAP 12 MEQ/L (2-14)
[2017-05-09 17:43] LABS: TOTAL BILIRUBIN 0.5 mg/dL (0.0-1.0)
[2017-05-09 17:44] LABS: ALKALINE PHOSPHATASE 81 IU/L (3-129); GFR ESTIMATE (CALCULATED) 39 mL/min/
[2017-05-09 17:45] LABS: UREA NITROGEN (BUN) 22 mg/dL (9-23)
[2017-05-09 17:47] LABS: CREATINE KINASE 59 IU/L (1-294); TOTAL CK 59 IU/L (1-294)
[2017-05-09 17:57] LABS: CK-MB 0.4 ng/mL (0.0-4.9); QUANTITATIVE HCG < 4.0 MIU/ML
[2017-05-09] MEDS ORDERED: MINIPRESS2 MG PO (21:22)
[2017-05-09] MEDS ORDERED: INDERAL20 MG PO (21:23)
[2017-05-09] MEDS ORDERED: DEPAKOTE500 MG PO (21:24)
[2017-05-09] MEDS ORDERED: SEROQUEL100 MG PO (21:25)
[2017-05-09] MEDS ORDERED: SEROQUEL400 MG PO (21:26)
[2017-05-09] MEDS ORDERED: CYMBALTA60 MG PO (21:26)
[2017-05-09] MEDS ORDERED: REXULTI2 MG PO (21:27)
[2017-05-10] VITALS (7 sets, daily range): BP systolic 116–159; BP diastolic 61–79
[2017-05-10 00:47] LABS: ADD MIUA? YES; BILIRUBIN NEGATIVE; BLOOD MODERATE; COLOR YELLOW ((YELLOW)); GLUCOSE (STRIP) NEGATIVE; KETONES 5; LEUKOCYTES LARGE; NITRITE NEGATIVE; PROTEIN (STRIP) >=500; SPECIFIC GRAVITY 1.012 (1.000-1.030); UROBILINOGEN 0.2 MG/DL (0.2-1.0)
[2017-05-10 00:56] LABS: AMPHETAMINE NEGATIVE (500 ng/mL); BARBITURATES NEGATIVE (200 ng/mL); BENZODIAZEPINES NEGATIVE (150 ng/mL); COCAINE NEGATIVE (150 ng/mL); INTERNAL CONTROLS VALID? YES; METHADONE NEGATIVE (200 ng/mL); METHAMPHETAMINE NEGATIVE (500 ng/mL); OPIATES (MORPHINE) NEGATIVE (100 ng/mL); OXYCODONE NEGATIVE (100 ng/mL); PHENCYCLIDINE NEGATIVE (25 ng/mL); PROPOXYPHENE NEGATIVE (300 ng/mL); THC CANNABINOIDS NEGATIVE (50 ng/mL); TRICYCLIC ANTIDEPRESSANTS PRESUMPTIVE POSITIVE (300 ng/mL)
[2017-05-10 01:05] LABS: RED BLOOD CELLS 15-20 /HPF (0-5)
[2017-05-10 01:06] LABS: EPITHELIAL CELLS 1+ /HPF; MUCUS 1+ /LPF; WHITE BLOOD CELLS TNTC /HPF (0-5)
[2017-05-10 01:07] LABS: BACTERIA 3+ /HPF; CASTS NONE SEEN /LPF; CRYSTALS NONE SEEN; UCUL ADDED? YES
[2017-05-10 03:21] LABS: SAMPLE HEMOLYSIS CHECK 0; SAMPLE ICTERIC CHECK 0; SAMPLE LIPEMIA CHECK 0
[2017-05-10 09:12] LABS: HEMATOCRIT 35.1 % (36.0-46.0); MCH 30.1 PG (29.0-34.0); MCV 91.2 FL (83-99); MEAN PLAT.VOLUME 11.1 uM^3 (9.5-12.4); PLATELET COUNT 130 K/uL (156-360); RBC DIS.WIDTH-CV 12.4 % (11.8-14.6); RBC DIS.WIDTH-SD 41.2 % (39-53); RED BLOOD COUNT 3.85 M/uL (3.80-5.20); WHITE BLOOD COUNT 11.4 K/uL (4.1-10.2)
[2017-05-10 10:09] LABS: ANION GAP 14 MEQ/L (2-14); CHLORIDE 103 MEQ/L (99-109); GFR ESTIMATE (CALCULATED) 32 mL/min/; POTASSIUM 3.7 MEQ/L (3.7-5.4); SAMPLE HEMOLYSIS CHECK 0; SAMPLE ICTERIC CHECK 0; SAMPLE LIPEMIA CHECK 0; SODIUM 132 MEQ/L (136-147); UREA NITROGEN (BUN) 28 mg/dL (9-23)
[2017-05-10 10:10] LABS: GLUCOSE 172 mg/dL (70-99)
[2017-05-11 03:45] VITALS: BP 119/71
[2017-05-11 08:00] VITALS: BP 124/80
[2017-05-11 09:23] LABS: HEMATOCRIT 32.9 % (36.0-46.0); MCH 30.5 PG (29.0-34.0); MCHC 32.8 G/DL (30.0-36.0); MCV 92.9 FL (83-99); MEAN PLAT.VOLUME 11.2 uM^3 (9.5-12.4); PLATELET COUNT 142 K/uL (156-360); RBC DIS.WIDTH-SD 44.5 % (39-53); RED BLOOD COUNT 3.54 M/uL (3.80-5.20); WHITE BLOOD COUNT 7.2 K/uL (4.1-10.2)
[2017-05-11 10:09] LABS: ANION GAP 9 MEQ/L (2-14); CHLORIDE 111 MEQ/L (99-109); GFR ESTIMATE (CALCULATED) 29 mL/min/; POTASSIUM 3.8 MEQ/L (3.7-5.4); SAMPLE HEMOLYSIS CHECK 0; SAMPLE ICTERIC CHECK 0; SAMPLE LIPEMIA CHECK 0; SODIUM 138 MEQ/L (136-147); UREA NITROGEN (BUN) 32 mg/dL (9-23)
[2017-05-11 10:29] LABS: GLUCOSE 85 mg/dL (70-99)
[2017-05-11 12:21] VITALS: BP 1258/69
[2017-05-11 16:00] VITALS: BP 132/87
[2017-05-11 20:45] VITALS: BP 123/61
[2017-05-12] VITALS (8 sets, daily range): BP systolic 122–180; BP diastolic 64–93
[2017-05-12 07:49] LABS: HEMATOCRIT 30.8 % (36.0-46.0); MCH 30.2 PG (29.0-34.0); MCHC 31.8 G/DL (30.0-36.0); MCV 94.8 FL (83-99); MEAN PLAT.VOLUME 11.3 uM^3 (9.5-12.4); PLATELET COUNT 161 K/uL (156-360); RBC DIS.WIDTH-CV 13.5 % (11.8-14.6); RED BLOOD COUNT 3.25 M/uL (3.80-5.20); WHITE BLOOD COUNT 5.9 K/uL (4.1-10.2)
[2017-05-12 08:35] LABS: ANION GAP 12 MEQ/L (2-14); CHLORIDE 110 MEQ/L (99-109); GFR ESTIMATE (CALCULATED) 43 mL/min/; GLUCOSE 72 mg/dL (70-99); POTASSIUM 4.1 MEQ/L (3.7-5.4); SAMPLE HEMOLYSIS CHECK 0; SAMPLE ICTERIC CHECK 0; SAMPLE LIPEMIA CHECK 0; SODIUM 140 MEQ/L (136-147); UREA NITROGEN (BUN) 26 mg/dL (9-23); URIC ACID 6.6 mg/dL (3.1-9.2)
[2017-05-12 10:10] LABS: IRON < 10.0 MCG/DL (35-150)
[2017-05-12 16:28] LABS: ADD MIUA? YES; BILIRUBIN NEGATIVE; BLOOD MODERATE; COLOR YELLOW ((YELLOW)); GLUCOSE (STRIP) NEGATIVE; KETONES NEGATIVE; LEUKOCYTES NEGATIVE; NITRITE NEGATIVE; PROTEIN (STRIP) 30; SPECIFIC GRAVITY 1.011 (1.000-1.030)
[2017-05-12 16:36] LABS: BACTERIA RARE /HPF; EPITHELIAL CELLS RARE /HPF; MUCUS TRACE /LPF; RED BLOOD CELLS 15-20 /HPF (0-5)
[2017-05-12 18:41] LABS: UR CREATININE CONCENTRATION 76.7 MG/DL
[2017-05-13 04:03] VITALS: BP 140/90
[2017-05-13 08:12] VITALS: BP 134/75
[2017-05-13 10:18] LABS: HEMATOCRIT 32.8 % (36.0-46.0); MCH 30.1 PG (29.0-34.0); MCHC 31.7 G/DL (30.0-36.0); MCV 94.8 FL (83-99); PLATELET COUNT 187 K/uL (156-360); RBC DIS.WIDTH-CV 13.8 % (11.8-14.6); RBC DIS.WIDTH-SD 48.2 % (39-53); RED BLOOD COUNT 3.46 M/uL (3.80-5.20)
[2017-05-13 10:56] LABS: ANION GAP 9 MEQ/L (2-14); CHLORIDE 109 MEQ/L (99-109); GFR ESTIMATE (CALCULATED) 50 mL/min/; GLUCOSE 76 mg/dL (70-99); MAGNESIUM 2.1 mg/dl (1.3-2.7); POTASSIUM 3.8 MEQ/L (3.7-5.4); SAMPLE HEMOLYSIS CHECK 0; SAMPLE ICTERIC CHECK 0; SAMPLE LIPEMIA CHECK 0; SODIUM 142 MEQ/L (136-147); UREA NITROGEN (BUN) 19 mg/dL (9-23)
[2017-05-13 11:04] LABS: ABS NEUTROPHIL COUNT 5.3; ANISOCYTOSIS 1+; ATYPICAL LYMPHOCYTE 1.7 %; BAND NEUTROPHILS 2.6 % (0-8.0); EOSINOPHIL ABS CT 0; INSTRUMENT ABS NEUTROPHIL CT 4.3 K/uL; LYMPHOCYTES 11.3 % (15.0-45.0); MACROCYTES 1+; METAMYELOCYTES 0.9 %; NUCLEATED RBC'S 0.9; PLAT.SUFFICIENCY ADEQUATE; SEG.NEUTROPHILS 73.1 % (46.0-76.0)
[2017-05-13 12:42] VITALS: BP 140/72
[2017-05-13 16:30] VITALS: BP 148/76
[2017-05-13 20:51] VITALS: BP 170/83
[2017-05-13 22:13] LABS: POINT-OF-CARE METER ID UU14117124
[2017-05-13 23:34] VITALS: BP 158/100
[2017-05-14 04:21] VITALS: BP 128/78
[2017-05-14 07:11] LABS: ANION GAP 11 MEQ/L (2-14); CHLORIDE 111 MEQ/L (99-109); GFR ESTIMATE (CALCULATED) 55 mL/min/; GLUCOSE 87 mg/dL (70-99); SAMPLE HEMOLYSIS CHECK 2; SAMPLE ICTERIC CHECK 0; SAMPLE LIPEMIA CHECK 0; SODIUM 143 MEQ/L (136-147); UREA NITROGEN (BUN) 17 mg/dL (9-23)
[2017-05-14 07:14] LABS: POTASSIUM 5.2 MEQ/L (3.7-5.4)
[2017-05-14 08:17] VITALS: BP 132/59
[2017-05-14 10:39] LABS: HEMATOCRIT 29.4 % (36.0-46.0); MCH 31.1 PG (29.0-34.0); MCHC 32.7 G/DL (30.0-36.0); MCV 95.1 FL (83-99); MEAN PLAT.VOLUME 10.8 uM^3 (9.5-12.4); PLATELET COUNT 172 K/uL (156-360); RBC DIS.WIDTH-CV 13.8 % (11.8-14.6); RBC DIS.WIDTH-SD 48.2 % (39-53); RED BLOOD COUNT 3.09 M/uL (3.80-5.20); WHITE BLOOD COUNT 7.3 K/uL (4.1-10.2)
[2017-05-14 11:49] VITALS: BP 120/59
[2017-05-14 14:23] LABS: ABS NEUTROPHIL COUNT 5.5; EOSINOPHIL ABS CT 0; LYMPHOCYTES 14.2 % (15.0-45.0); METAMYELOCYTES 2.7 %; MYELOCYTES 4.4 %; PLAT.SUFFICIENCY ADEQUATE; SEG.NEUTROPHILS 60.2 % (46.0-76.0)
[2017-05-14 15:47] VITALS: BP 130/69
[2017-05-14 23:31] VITALS: BP 130/72
[2017-05-15 06:27] LABS: HEMATOCRIT 32.1 % (36.0-46.0); MCH 29.9 PG (29.0-34.0); MCHC 31.2 G/DL (30.0-36.0); MCV 96.1 FL (83-99); MEAN PLAT.VOLUME 10.6 uM^3 (9.5-12.4); PLATELET COUNT 220 K/uL (156-360); RBC DIS.WIDTH-CV 13.8 % (11.8-14.6); RBC DIS.WIDTH-SD 49.2 % (39-53); RED BLOOD COUNT 3.34 M/uL (3.80-5.20); WHITE BLOOD COUNT 9.6 K/uL (4.1-10.2)
[2017-05-15 06:53] LABS: ANION GAP 7 MEQ/L (2-14); CHLORIDE 110 MEQ/L (99-109); GFR ESTIMATE (CALCULATED) > 59 mL/min/; GLUCOSE 75 mg/dL (70-99); SAMPLE HEMOLYSIS CHECK 0; SAMPLE ICTERIC CHECK 0; SAMPLE LIPEMIA CHECK 0; SODIUM 146 MEQ/L (136-147); UREA NITROGEN (BUN) 11 mg/dL (9-23)
[2017-05-15 06:57] LABS: POTASSIUM 3.9 MEQ/L (3.7-5.4)
[2017-05-15 07:06] LABS: ABS NEUTROPHIL COUNT 5.6; EOSINOPHIL ABS CT 0.1; HYPOCHROMASIA 1+; INSTRUMENT ABS NEUTROPHIL CT 4.3 K/uL; PLAT.SUFFICIENCY ADEQUATE
[2017-05-15 07:38] VITALS: BP 130/63
[2017-05-15 10:03] LABS: IMM.RETIC FRACTION 23.1 % (3-19); RETIC HGB EQUIVALENT 31.8 (28-36); RETICULOCYTE COUNT 0.5 % (0.5-1.8)
[2017-05-15 10:43] LABS: FERRITIN 575 NG/ML (10-291); IRON 36 MCG/DL (35-150)
[2017-05-15 11:09] LABS: ADD MIUA? YES; BILIRUBIN NEGATIVE; BLOOD MODERATE; COLOR YELLOW ((YELLOW)); GLUCOSE (STRIP) NEGATIVE; KETONES 5; LEUKOCYTES TRACE; NITRITE NEGATIVE; PROTEIN (STRIP) NEGATIVE; SPECIFIC GRAVITY 1.008 (1.000-1.030)
[2017-05-15 11:15] LABS: BACTERIA RARE /HPF; EPITHELIAL CELLS 1+ /HPF; HYALINE CASTS 0-5 /LPF; MUCUS TRACE /LPF; RED BLOOD CELLS 0-5 /HPF (0-5); UCUL ADDED? YES
[2017-05-15 15:11] VITALS: BP 114/78
[2017-05-15 19:34] VITALS: BP 113/91; BP 213/91
[2017-05-15 23:23] VITALS: BP 145/83
[2017-05-16 04:17] VITALS: BP 170/78
[2017-05-16 06:16] LABS: MCH 29.9 PG (29.0-34.0); MCV 96.6 FL (83-99); RBC DIS.WIDTH-SD 49.7 % (39-53); RED BLOOD COUNT 3.21 M/uL (3.80-5.20); WHITE BLOOD COUNT 11.2 K/uL (4.1-10.2)
[2017-05-16 06:39] LABS: ALKALINE PHOSPHATASE 143 IU/L (3-129); ANION GAP 12 MEQ/L (2-14); CHLORIDE 107 MEQ/L (99-109); GFR ESTIMATE (CALCULATED) > 59 mL/min/; GLUCOSE 84 mg/dL (70-99); POTASSIUM 4.2 MEQ/L (3.7-5.4); SAMPLE HEMOLYSIS CHECK 2; SAMPLE ICTERIC CHECK 0; SAMPLE LIPEMIA CHECK 0; SODIUM 148 MEQ/L (136-147); TOTAL BILIRUBIN 0.5 MG/DL (0.0-1.0); UREA NITROGEN (BUN) 10 mg/dL (9-23)
[2017-05-16 06:40] LABS: ANION GAP 10 MEQ/L (2-14); CHLORIDE 108 MEQ/L (99-109); GFR ESTIMATE (CALCULATED) > 59 mL/min/; GLUCOSE 84 mg/dL (70-99); POTASSIUM 3.7 MEQ/L (3.7-5.4); SAMPLE HEMOLYSIS CHECK 0; SAMPLE ICTERIC CHECK 0; SAMPLE LIPEMIA CHECK 0; SODIUM 149 MEQ/L (136-147); UREA NITROGEN (BUN) 10 mg/dL (9-23)
[2017-05-16 06:54] LABS: ABS NEUTROPHIL COUNT 6.1; ATYPICAL LYMPHOCYTE 1.7 %; BAND NEUTROPHILS 3.5 % (0-8.0); BASOPHILS 0.9 %; EOSINOPHIL ABS CT 0; HYPOCHROMASIA 1+; INSTRUMENT ABS NEUTROPHIL CT 4.8 K/uL; LYMPHOCYTES 23.5 % (15.0-45.0); MACROCYTES 1+; METAMYELOCYTES 4.3 %; MYELOCYTES 9.6 %; PLAT.SUFFICIENCY ADEQUATE; PLATELET CLUMPS PRESENT - PLATELET COUNT APPEARS ADQ.; SEG.NEUTROPHILS 51.3 % (46.0-76.0); SMUDGE CELLS 0.9
[2017-05-16 08:35] VITALS: BP 126/64
[2017-05-16 11:46] VITALS: BP 123/60
[2017-05-16 16:14] VITALS: BP 103/69
[2017-05-16 19:23] VITALS: BP 137/87
[2017-05-17 03:23] VITALS: BP 122/63
[2017-05-17 06:54] LABS: HEMATOCRIT 30.5 % (36.0-46.0); MCH 30.6 PG (29.0-34.0); MCHC 31.8 G/DL (30.0-36.0); MCV 96.2 FL (83-99); MEAN PLAT.VOLUME 10.1 uM^3 (9.5-12.4); RBC DIS.WIDTH-CV 14.1 % (11.8-14.6); RED BLOOD COUNT 3.17 M/uL (3.80-5.20)
[2017-05-17 07:16] LABS: ALKALINE PHOSPHATASE 158 IU/L (3-129); ANION GAP 12 MEQ/L (2-14); CHLORIDE 107 MEQ/L (99-109); GFR ESTIMATE (CALCULATED) > 59 mL/min/; GLUCOSE 94 mg/dL (70-99); POTASSIUM 4.3 MEQ/L (3.7-5.4); SAMPLE HEMOLYSIS CHECK 0; SAMPLE ICTERIC CHECK 0; SAMPLE LIPEMIA CHECK 0; SODIUM 147 MEQ/L (136-147); TOTAL BILIRUBIN 0.5 MG/DL (0.0-1.0); UREA NITROGEN (BUN) 7 mg/dL (9-23)
[2017-05-17 07:17] LABS: ANION GAP 11 MEQ/L (2-14); CHLORIDE 106 MEQ/L (99-109); GFR ESTIMATE (CALCULATED) > 59 mL/min/; GLUCOSE 93 mg/dL (70-99); POTASSIUM 4.2 MEQ/L (3.7-5.4); SAMPLE HEMOLYSIS CHECK 0; SAMPLE ICTERIC CHECK 0; SAMPLE LIPEMIA CHECK 0; SODIUM 146 MEQ/L (136-147); UREA NITROGEN (BUN) 8 mg/dL (9-23)
[2017-05-17 07:24] LABS: ABS NEUTROPHIL COUNT 7.6; ATYPICAL LYMPHOCYTE 1.8 %; BAND NEUTROPHILS 3.5 % (0-8.0); EOSINOPHIL ABS CT 0; INSTRUMENT ABS NEUTROPHIL CT 7.2 K/uL; LYMPHOCYTES 20.2 % (15.0-45.0); METAMYELOCYTES 2.6 %; MYELOCYTES 9.6 %; NUCLEATED RBC'S 0.9; PLAT.SUFFICIENCY ADEQUATE; SEG.NEUTROPHILS 55.3 % (46.0-76.0); SMUDGE CELLS 1.8; STOMATOCYTES 2+; TARGET CELLS 1+
[2017-05-17 07:30] LABS: PLATELET COUNT 307 K/uL (156-360)
[2017-05-17 08:37] VITALS: BP 137/68
[2017-05-17 12:12] VITALS: BP 124/73
[2017-05-17 16:09] VITALS: BP 124/76
[2017-05-17 19:22] VITALS: BP 134/69
[2017-05-18 01:00] VITALS: BP 134/74
[2017-05-18 06:08] LABS: HEMATOCRIT 31.2 % (36.0-46.0); MCHC 30.4 G/DL (30.0-36.0); MCV 98.4 FL (83-99); MEAN PLAT.VOLUME 9.9 uM^3 (9.5-12.4); PLATELET COUNT 277 K/uL (156-360); RBC DIS.WIDTH-CV 13.8 % (11.8-14.6); RBC DIS.WIDTH-SD 49.1 % (39-53); RED BLOOD COUNT 3.17 M/uL (3.80-5.20); WHITE BLOOD COUNT 13.4 K/uL (4.1-10.2)
[2017-05-18 06:38] LABS: ANION GAP 11 MEQ/L (2-14); CHLORIDE 104 MEQ/L (99-109); GFR ESTIMATE (CALCULATED) > 59 mL/min/; GLUCOSE 100 mg/dL (70-99); POTASSIUM 4.3 MEQ/L (3.7-5.4); SAMPLE HEMOLYSIS CHECK 0; SAMPLE ICTERIC CHECK 0; SAMPLE LIPEMIA CHECK 0; SODIUM 143 MEQ/L (136-147); UREA NITROGEN (BUN) 8 mg/dL (9-23)
[2017-05-18 08:30] VITALS: BP 124/84
[2017-05-18 16:30] VITALS: BP 131/74
[2017-05-18 19:54] VITALS: BP 130/60
[2017-05-18 23:32] VITALS: BP 131/62
[2017-05-19 07:02] LABS: HEMATOCRIT 29.5 % (36.0-46.0); MCH 30.6 PG (29.0-34.0); MCHC 31.9 G/DL (30.0-36.0); MCV 96.1 FL (83-99); MEAN PLAT.VOLUME 10.4 uM^3 (9.5-12.4); PLATELET COUNT 313 K/uL (156-360); RBC DIS.WIDTH-CV 13.8 % (11.8-14.6); RBC DIS.WIDTH-SD 48.3 % (39-53); RED BLOOD COUNT 3.07 M/uL (3.80-5.20); WHITE BLOOD COUNT 14.8 K/uL (4.1-10.2)
[2017-05-19 08:29] VITALS: BP 130/72
[2017-05-19 12:30] VITALS: BP 133/79
[2017-05-19 15:59] VITALS: BP 134/74
[2017-05-19 19:57] VITALS: BP 125/93
[2017-05-20 00:16] VITALS: BP 124/61
[2017-05-20 08:55] VITALS: BP 126/76; BP 158/79
[2017-05-20 10:05] LABS: HEMATOCRIT 29.9 % (36.0-46.0); MCH 30.5 PG (29.0-34.0); MCHC 31.4 G/DL (30.0-36.0); MCV 97.1 FL (83-99); MEAN PLAT.VOLUME 10.5 uM^3 (9.5-12.4); PLATELET COUNT 278 K/uL (156-360); RBC DIS.WIDTH-CV 13.8 % (11.8-14.6); RBC DIS.WIDTH-SD 48.6 % (39-53); RED BLOOD COUNT 3.08 M/uL (3.80-5.20); WHITE BLOOD COUNT 13.7 K/uL (4.1-10.2)
[2017-05-20 12:16] VITALS: BP 132/74
[2017-05-20 16:15] VITALS: BP 146/69
[2017-05-21 00:11] VITALS: BP 124/76
[2017-05-21 07:55] VITALS: BP 137/83
[2017-05-21 16:09] VITALS: BP 105/54
[2017-05-22 08:37] VITALS: BP 137/60
[2017-05-22 11:49] VITALS: BP 119/76
[2017-05-22 15:46] VITALS: BP 127/61
[2017-05-23 00:16] VITALS: BP 134/56
[2017-05-23 08:09] VITALS: BP 132/71
[2017-05-23 10:08] LABS: ANION GAP 9 MEQ/L (2-14); CHLORIDE 96 MEQ/L (99-109); GFR ESTIMATE (CALCULATED) 55 mL/min/; GLUCOSE 115 mg/dL (70-99); SAMPLE HEMOLYSIS CHECK 1; SAMPLE ICTERIC CHECK 0; SAMPLE LIPEMIA CHECK 0; UREA NITROGEN (BUN) 11 mg/dL (9-23)
[2017-05-23 10:09] LABS: POTASSIUM 5.7 MEQ/L (3.7-5.4); SODIUM 134 MEQ/L (136-147)
[2017-05-23 10:25] LABS: BASOPHIL COUNT 0.1 K/uL (0-0.1); EOSINOPHIL (%) 0.5 % (0-5); EOSINOPHIL COUNT 0.1 K/uL (0-0.3); HEMATOCRIT 33.8 % (36.0-46.0); IMMATURE GRANULOCYTE (%) 3.8 % (0.0-0.7); IMMATURE GRANULOCYTE COUNT 0.6 K/uL; INSTRUMENT ABS NEUTROPHIL CT 9.9 K/uL; LYMPHOCYTE COUNT 2.4 K/uL (1.0-2.8); MCH 29.7 PG (29.0-34.0); MCHC 31.1 G/DL (30.0-36.0); MCV 95.8 FL (83-99); MEAN PLAT.VOLUME 10.6 uM^3 (9.5-12.4); MONOCYTE (%) 9.2 % (3-12); MONOCYTE COUNT 1.3 K/uL (0-0.8); NEUTROPHIL (%) 69.4 % (45-76); NEUTROPHIL COUNT 9.9 K/uL (1.8-6.4); RBC DIS.WIDTH-CV 12.9 % (11.8-14.6); RBC DIS.WIDTH-SD 45.6 % (39-53); RED BLOOD COUNT 3.53 M/uL (3.80-5.20); WHITE BLOOD COUNT 14.3 K/uL (4.1-10.2)
[2017-05-23 10:28] LABS: PLATELET COUNT 397 K/uL (156-360)
[2017-05-23] MEDS ORDERED: QUETIAPINE FUM200 MG PO (11:27)
[2017-05-23] MEDS ORDERED: DIVALPROEX SOD500 MG PO (11:27)
[2017-05-23 15:24] VITALS: BP 141/79
[2017-05-23 19:21] LABS: C DIFF TOXIN POSITIVE (NEGATIVE)
[2017-05-23 19:41] LABS: PROBE CHECK PASS
[2017-05-23 23:16] VITALS: BP 101/57
[2017-05-24 07:10] LABS: BASOPHIL COUNT 0.1 K/uL (0-0.1); EOSINOPHIL (%) 0.4 % (0-5); EOSINOPHIL COUNT 0.1 K/uL (0-0.3); HEMATOCRIT 39.3 % (36.0-46.0); IMMATURE GRANULOCYTE (%) 3.7 % (0.0-0.7); IMMATURE GRANULOCYTE COUNT 0.4 K/uL; MCH 30.2 PG (29.0-34.0); MCV 97.3 FL (83-99); MONOCYTE (%) 6.7 % (3-12); MONOCYTE COUNT 0.8 K/uL (0-0.8); NEUTROPHIL (%) 71.3 % (45-76); RBC DIS.WIDTH-CV 13.1 % (11.8-14.6); RED BLOOD COUNT 4.04 M/uL (3.80-5.20); WHITE BLOOD COUNT 11.3 K/uL (4.1-10.2)
[2017-05-24 07:33] VITALS: BP 126/81
[2017-05-24 07:34] LABS: ANION GAP 13 MEQ/L (2-14); CHLORIDE 97 MEQ/L (99-109); GFR ESTIMATE (CALCULATED) > 59 mL/min/; GLUCOSE 161 mg/dL (70-99); SAMPLE HEMOLYSIS CHECK 0; SAMPLE ICTERIC CHECK 0; SAMPLE LIPEMIA CHECK 0; SODIUM 134 MEQ/L (136-147); UREA NITROGEN (BUN) 13 mg/dL (9-23)
[2017-05-24 07:37] LABS: MEAN PLAT.VOLUME 10.6 uM^3 (9.5-12.4); PLAT.SUFFICIENCY INCREASED; PLATELET COUNT 327 K/uL (156-360); POTASSIUM 4.1 MEQ/L (3.7-5.4)
[2017-05-24] MEDS ORDERED: METRONIDAZOLE500 MG PO (14:21)
== END 2017-05-24 15:19 | disposition home or self-care (01) | DRG 871 ==
LOC: EME 16:32 → 3EAST 22:51 → EDOF 22:51 → ENRESERV 22:53 → 3EAST 05-10 00:59
PROVIDERS: Emergency Medicine; Hospitalist; Internal Medicine; Internal Medicine Nephrology; Physician Assistant; Psychiatry & Neurology Psychiatry; Student in an Organized Health Care Education/Training Program
DX: A41.51 Sepsis due to Escherichia coli [E. coli] (principal); J69.0 Pneumonitis due to inhalation of food and vomit; N17.0 Acute kidney failure with tubular necrosis; G93.41 Metabolic encephalopathy; F25.0 Schizoaffective disorder, bipolar type; E87.0 Hyperosmolality and hypernatremia; N10 Acute pyelonephritis; I10 Essential (primary) hypertension; E87.1 Hypo-osmolality and hyponatremia; E87.5 Hyperkalemia; E87.6 Hypokalemia; K21.9 Gastro-esophageal reflux disease without esophagitis; F41.9 Anxiety disorder, unspecified; F10.10 Alcohol abuse, uncomplicated; F60.3 Borderline personality disorder; E66.9 Obesity, unspecified; N28.81 Hypertrophy of kidney; G40.909 Epilepsy, unspecified, not intractable, without status epilepticus; F17.210 Nicotine dependence, cigarettes, uncomplicated; R00.0 Tachycardia, unspecified; D64.9 Anemia, unspecified; E87.2 Acidosis; F11.20 Opioid dependence, uncomplicated; R47.01 Aphasia; Z79.899 Other long term (current) drug therapy; Z68.33 Body mass index [BMI] 33.0-33.9, adult; J32.0 Chronic maxillary sinusitis; F05 Delirium due to known physiological condition; Z76.5 Malingerer [conscious simulation]; R13.10 Dysphagia, unspecified
CPT/HCPCS: 70450; 71010; 71250; 74176; 76770; 78580; 80048; 80053; 80069; 80164; 81003; 82140; 82550; 82553; 82570; 82607; 82728; 82746; 82948; 83540; 83605; 83735; 84156; 84443; 84466; 84550; 84702; 85025; 85027; 85045; 85379; 87040; 87077; 87086; 87186; 87493; 87502; 87801; 92610 GN; 94799; 99202; 99281; 99285; A9540; J0572; J0574; J0692; J0696; J1644; J2060; J3010; J3480; J7030; J7070

== ENCOUNTER 2017-05-24 16:25 | Emergency (ER) | payer OTHER ==
[~2017-05-24] VITALS: Ht 167.6 cm; Wt 84.7 kg
[~2017-05-24 16:25] MED LIST changes: +INDERAL20 MG PO; +METRONIDAZOLE500 MG PO; +MINIPRESS2 MG PO; +QUETIAPINE FUM200 MG PO; +REXULTI2 MG PO
[2017-05-24 17:00] VITALS: BP 156/108
== END 2017-05-24 17:00 | disposition left against medical advice (07) ==
LOC: EME 16:25
DX: F91.9 Conduct disorder, unspecified (principal); Z53.21 Procedure and treatment not carried out due to patient leaving prior to being seen by health care provider
CPT/HCPCS: 99281; 99283

== ENCOUNTER 2017-07-25 23:45 | Inpatient (IN) | payer OTHER ==
[~2017-07-25] VITALS: Ht 167.6 cm; Wt 79.5 kg
[2017-07-26 02:25] LABS: BASOPHIL (%) 0.2 % (0-1); EOSINOPHIL (%) 0.6 % (0-5); HEMATOCRIT 41.7 % (36.0-46.0); HEMOGLOBIN 14.2 G/DL (11.9-15.5); IMMATURE GRANULOCYTE (%) 0.5 % (0.0-0.7); LYMPHOCYTE (%) 37.4 % (15-42); LYMPHOCYTE COUNT 2.5 K/uL (1.0-2.8); MCH 30.9 PG (29.0-34.0); MCHC 34.1 G/DL (30.0-36.0); MCV 90.8 FL (83-99); MONOCYTE (%) 7.3 % (3-12); MONOCYTE COUNT 0.5 K/uL (0-0.8); NEUTROPHIL COUNT 3.6 K/uL (1.8-6.4); PLATELET COUNT 266 K/uL (156-360); RBC DIS.WIDTH-CV 13.1 % (11.8-14.6); RBC DIS.WIDTH-SD 43.5 % (39-53); RED BLOOD COUNT 4.59 M/uL (3.80-5.20); WHITE BLOOD COUNT 6.6 K/uL (4.1-10.2)
[2017-07-26 02:37] LABS: ALBUMIN 4.9 g/dL (3.2-4.8)
[2017-07-26 02:38] LABS: CHLORIDE 104 mEq/L (99-109); POTASSIUM 3.9 mEq/L (3.7-5.4); SODIUM 140 mEq/L (136-147)
[2017-07-26 02:40] LABS: GLUCOSE 102 mg/dL (70-99); TOTAL PROTEIN 7.8 g/dL (6.4-8.3)
[2017-07-26 02:42] LABS: SERUM ETHYL ALCOHOL < 10 mg/dL; TOTAL BILIRUBIN 0.7 mg/dL (0.0-1.0)
[2017-07-26 02:43] LABS: ALKALINE PHOSPHATASE 80 IU/L (3-129)
[2017-07-26 02:44] LABS: CREATININE 0.8 mg/dL (0.6-1.3); GFR ESTIMATE (CALCULATED) > 59 mL/min/
[2017-07-26 02:45] LABS: AST (GOT) 19 IU/L (2-34); LIPASE 14 U/L (1.0-51.0); UREA NITROGEN (BUN) 10 mg/dL (9-23)
[2017-07-26 02:47] LABS: ALT (GPT) 13 IU/L (3-49)
[2017-07-26 02:54] LABS: QUANTITATIVE HCG < 4.0 MIU/ML
[2017-07-26 05:59] VITALS: BP 143/81
[2017-07-26 07:25] VITALS: BP 147/70
[2017-07-26 15:21] VITALS: BP 148/75
[2017-07-27 07:22] VITALS: BP 179/95
[2017-07-27 11:35] VITALS: BP 152/79
[2017-07-27 16:21] VITALS: BP 131/87
[2017-07-28 07:47] VITALS: BP 127/70
[2017-07-28 15:54] VITALS: BP 129/65
[2017-07-29 07:28] VITALS: BP 115/78
[2017-07-29 15:05] VITALS: BP 133/77
[2017-07-30 07:43] VITALS: BP 119/57
[2017-07-30] MEDS ORDERED: NEURONTIN300 MG PO (08:40)
[2017-07-30] MEDS ORDERED: SEROQUEL400 MG PO (09:11)
== END 2017-07-30 10:37 | disposition home or self-care (01) | DRG 885 ==
LOC: EME → EDBD 23:45 → EDOF 07-26 04:06 → 1WEST 07-26 04:06 → ENRESERV 07-26 04:50 → 1WEST 07-26 05:19
PROVIDERS: Emergency Medicine
DX: F25.0 Schizoaffective disorder, bipolar type (principal); F14.20 Cocaine dependence, uncomplicated; F11.20 Opioid dependence, uncomplicated; F41.9 Anxiety disorder, unspecified; F17.200 Nicotine dependence, unspecified, uncomplicated; F60.9 Personality disorder, unspecified; F12.90 Cannabis use, unspecified, uncomplicated; G89.29 Other chronic pain; L29.9 Pruritus, unspecified; K21.9 Gastro-esophageal reflux disease without esophagitis; I10 Essential (primary) hypertension; Z91.14 Patient's other noncompliance with medication regimen; Z79.891 Long term (current) use of opiate analgesic; Z86.73 Personal history of transient ischemic attack (TIA), and cerebral infarction without residual deficits
CPT/HCPCS: 80048; 80053; 80306 90; 81003; 83690; 84702; 85025; 90839; 97150 GO; 97166 GO; 99281; 99285; G0480; J0574; J1200; J1630; J7040; Q0177

== ENCOUNTER 2017-08-08 00:16 | Inpatient (IN) | payer OTHER ==
[~2017-08-08] VITALS: Ht 167.6 cm; Wt 82.5 kg
[2017-08-08 00:57] LABS: HEMATOCRIT 40.3 % (36.0-46.0); HEMOGLOBIN 13.8 G/DL (11.9-15.5); MCH 31.4 PG (29.0-34.0); MCHC 34.2 G/DL (30.0-36.0); MCV 91.8 FL (83-99); PLATELET COUNT 232 K/uL (156-360); RBC DIS.WIDTH-CV 12.2 % (11.8-14.6); RBC DIS.WIDTH-SD 41.5 % (39-53); RED BLOOD COUNT 4.39 M/uL (3.80-5.20); WHITE BLOOD COUNT 9.8 K/uL (4.1-10.2)
[2017-08-08 01:06] LABS: ALBUMIN 4.1 g/dL (3.2-4.8); CHLORIDE 104 mEq/L (99-109); POTASSIUM 4.1 mEq/L (3.7-5.4); SODIUM 138 mEq/L (136-147)
[2017-08-08 01:08] LABS: GLUCOSE 116 mg/dL (70-99)
[2017-08-08 01:10] LABS: TOTAL BILIRUBIN 0.3 mg/dL (0.0-1.0)
[2017-08-08 01:11] LABS: SERUM ETHYL ALCOHOL < 10 mg/dL
[2017-08-08 01:12] LABS: ALKALINE PHOSPHATASE 83 IU/L (3-129); CREATININE 0.9 mg/dL (0.6-1.3); GFR ESTIMATE (CALCULATED) > 59 mL/min/
[2017-08-08 01:13] LABS: UREA NITROGEN (BUN) 8 mg/dL (9-23)
[2017-08-08 01:14] LABS: AST (GOT) 11 IU/L (2-34)
[2017-08-08 01:15] LABS: AMPHETAMINE NEGATIVE (500 ng/mL); BARBITURATES NEGATIVE (200 ng/mL); BENZODIAZEPINES PRESUMPTIVE POSITIVE (150 ng/mL); BUPRENORPHINE PRESUMPTIVE POSITIVE (10 ng/mL); COCAINE NEGATIVE (150 ng/mL); METHADONE NEGATIVE (200 ng/mL); METHAMPHETAMINE NEGATIVE (500 ng/mL); OPIATES (MORPHINE) NEGATIVE (100 ng/mL); OXYCODONE NEGATIVE (100 ng/mL); PHENCYCLIDINE NEGATIVE (25 ng/mL); PROPOXYPHENE NEGATIVE (300 ng/mL); THC CANNABINOIDS NEGATIVE (50 ng/mL); TRICYCLIC ANTIDEPRESSANTS PRESUMPTIVE POSITIVE (300 ng/mL)
[2017-08-08 01:15] LABS: ALT (GPT) 10 IU/L (3-49)
[2017-08-08 01:57] LABS: BENZODIAZEPINES, URINE SCREEN POSITIVE (200 ng/mL)
[2017-08-08 04:59] VITALS: BP 134/94
[2017-08-08] MEDS ORDERED: SUBOXONE 8 MG-1 EAC2 SL (05:27)
[2017-08-08] MEDS ORDERED: CYMBALTA60 MG PO (05:32)
[2017-08-08] MEDS ORDERED: SUBOXONE 4 MG-1 EACH SL (07:50)
[2017-08-08 07:58] VITALS: BP 134/94
[2017-08-08 11:19] LABS: VALPROIC ACID (DEPAKOTE) 53.5 MCG/ML (50-100)
[2017-08-08 15:31] VITALS: BP 125/74
[2017-08-09 07:48] VITALS: BP 108/61
[2017-08-09 15:25] VITALS: BP 109/61
[2017-08-10 07:33] VITALS: BP 104/63
[2017-08-10 15:21] VITALS: BP 112/71
[2017-08-11 07:55] VITALS: BP 125/59
[2017-08-11 16:03] VITALS: BP 119/75
[2017-08-12 07:13] VITALS: BP 123/59
[2017-08-12 15:05] VITALS: BP 121/64
[2017-08-13 07:44] VITALS: BP 127/58
[2017-08-13 12:09] LABS: HEPATITIS B SURFACE ANTIGEN Nonreactive; HEPATITIS C ANTIBODY Nonreactive; HIV-1/2 AB/AG COMBO Nonreactive
[2017-08-13 12:35] LABS: TREPONEMA ANTIBODY NEGATIVE (NEGATIVE)
[2017-08-13 15:53] VITALS: BP 130/81
[2017-08-14 07:51] VITALS: BP 114/67
[2017-08-14] MEDS ORDERED: PERPHENAZINE4 MG PO (11:03)
[2017-08-14] MEDS ORDERED: GABAPENTIN400 MG PO (11:03)
[2017-08-14 15:48] VITALS: BP 136/68
[2017-08-15 07:00] VITALS: BP 110/70
[2017-08-15 09:29] LABS: HSV-1 IgG Antibody <0.90 Index (<0.90); HSV-2 IgG Antibody <0.90 Index (<0.90)
== END 2017-08-15 09:45 | disposition home or self-care (01) | DRG 885 ==
LOC: EME 00:16 → 1WEST 02:25 → EDOF 02:25 → 1WEST 02:25 → ENRESERV 04:04 → 1WEST 04:38
PROVIDERS: Emergency Medicine; Psychiatry & Neurology Psychiatry
DX: F25.0 Schizoaffective disorder, bipolar type (principal); F11.20 Opioid dependence, uncomplicated; R45.851 Suicidal ideations; F60.3 Borderline personality disorder; Z91.14 Patient's other noncompliance with medication regimen; Z91.19 Patient's noncompliance with other medical treatment and regimen; F14.10 Cocaine abuse, uncomplicated; F19.94 Other psychoactive substance use, unspecified with psychoactive substance-induced mood disorder; F41.9 Anxiety disorder, unspecified; F32.9 Major depressive disorder, single episode, unspecified; K21.9 Gastro-esophageal reflux disease without esophagitis; Z86.73 Personal history of transient ischemic attack (TIA), and cerebral infarction without residual deficits; F10.10 Alcohol abuse, uncomplicated; F17.200 Nicotine dependence, unspecified, uncomplicated
CPT/HCPCS: 80053; 80164; 84999; 85027; 86695 90; 86696 90; 86780; 86803; 87340; 87389; 90839; 99281; 99285; G0480; J0572; J0574; Q0175; Q0177

== ENCOUNTER 2017-09-26 18:32 | Emergency (ER) | payer OTHER ==
[~2017-09-26] VITALS: Ht 167.6 cm; Wt 86.3 kg
[~2017-09-26 18:32] MED LIST changes: +GABAPENTIN400 MG PO; +PERPHENAZINE4 MG PO
[2017-09-26 21:04] LABS: HEMATOCRIT 38.5 % (36.0-46.0); HEMOGLOBIN 13.1 G/DL (11.9-15.5); MCH 31.2 PG (29.0-34.0); MCV 91.7 FL (83-99); PLATELET COUNT 154 K/uL (156-360); RBC DIS.WIDTH-CV 12.4 % (11.8-14.6); RBC DIS.WIDTH-SD 41.7 % (39-53); WHITE BLOOD COUNT 13.8 K/uL (4.1-10.2)
[2017-09-26 21:15] LABS: CHLORIDE 102 mEq/L (99-109); POTASSIUM 3.9 mEq/L (3.7-5.4); SODIUM 137 mEq/L (136-147)
[2017-09-26 21:16] LABS: GLUCOSE 132 mg/dL (70-99)
[2017-09-26 21:20] LABS: CREATININE 1.7 mg/dL (0.6-1.3); GFR ESTIMATE (CALCULATED) 37 mL/min/; SERUM ETHYL ALCOHOL < 10 mg/dL
[2017-09-26 21:21] LABS: APPEARANCE CLOUDY ((CLEAR)); BILIRUBIN NEGATIVE; BLOOD SMALL; COLOR AMBER ((YELLOW)); GLUCOSE (STRIP) 50; KETONES NEGATIVE; LEUKOCYTES LARGE; NITRITE NEGATIVE; PROTEIN (STRIP) 100
[2017-09-26 21:21] LABS: UREA NITROGEN (BUN) 27 mg/dL (9-23)
[2017-09-26 21:31] LABS: QUANTITATIVE HCG < 4.0 MIU/ML
[2017-09-26 21:38] LABS: AMPHETAMINE NEGATIVE (500 ng/mL); BARBITURATES NEGATIVE (200 ng/mL); BENZODIAZEPINES PRESUMPTIVE POSITIVE (150 ng/mL); BUPRENORPHINE PRESUMPTIVE POSITIVE (10 ng/mL); COCAINE PRESUMPTIVE POSITIVE (150 ng/mL); METHADONE NEGATIVE (200 ng/mL); METHAMPHETAMINE PRESUMPTIVE POSITIVE (500 ng/mL); OPIATES (MORPHINE) PRESUMPTIVE POSITIVE (100 ng/mL); OXYCODONE NEGATIVE (100 ng/mL); PHENCYCLIDINE NEGATIVE (25 ng/mL); PROPOXYPHENE NEGATIVE (300 ng/mL); THC CANNABINOIDS NEGATIVE (50 ng/mL); TRICYCLIC ANTIDEPRESSANTS PRESUMPTIVE POSITIVE (300 ng/mL)
[2017-09-26 21:52] LABS: BACTERIA RARE /HPF; MUCUS NONE SEEN /LPF; RED BLOOD CELLS RARE /HPF (0-5); UCUL ADDED? YES; WHITE BLOOD CELLS 20-30 /HPF (0-5)
[2017-09-26 21:53] LABS: COARSE GRANULAR CASTS RARE /LPF; EPITHELIAL CELLS 2+ /HPF
[2017-09-26 22:12] LABS: BENZODIAZEPINES, URINE SCREEN Negative (200 ng/mL)
[2017-09-27] MEDS ORDERED: SUBOXONE 2 MG-1 EACH SL (00:24)
[2017-09-27] MEDS ORDERED: GABAPENTIN400 MG PO (00:24)
[2017-09-27 01:00] LABS: MONOSPOT (MONONUCLEOSIS SEROL) NEGATIVE
[2017-09-27] MEDS ORDERED: BACTRIM,SEPT1 TABLET PO (01:10)
[2017-09-27 01:23] VITALS: BP 124/78
== END 2017-09-27 01:55 | disposition home or self-care (01) ==
LOC: EME 18:32
PROVIDERS: Physician Assistant Medical
DX: N12 Tubulo-interstitial nephritis, not specified as acute or chronic (principal); N18.9 Chronic kidney disease, unspecified; K21.9 Gastro-esophageal reflux disease without esophagitis; F20.9 Schizophrenia, unspecified; F17.200 Nicotine dependence, unspecified, uncomplicated; Z86.73 Personal history of transient ischemic attack (TIA), and cerebral infarction without residual deficits
CPT/HCPCS: 74176; 80048; 81003; 84702; 84999; 85027; 86308; 87077; 87086 GA; 87186; 90839; 99281; 99285; G0480; J0696; J2405; J7030

== ENCOUNTER 2017-11-30 18:47 | Emergency (ER) | payer OTHER ==
[~2017-11-30] VITALS: Ht 167.6 cm; Wt 76.5 kg
[~2017-11-30 18:47] MED LIST changes: +SUBOXONE 2 MG-1 EACH SL
[2017-11-30 19:53] LABS: HEMATOCRIT 42.6 % (36.0-46.0); HEMOGLOBIN 14.9 G/DL (11.9-15.5); MCH 31.3 PG (29.0-34.0); MCV 89.5 FL (83-99); PLATELET COUNT 295 K/uL (156-360); RBC DIS.WIDTH-CV 12.6 % (11.8-14.6); RBC DIS.WIDTH-SD 41.7 % (39-53); RED BLOOD COUNT 4.76 M/uL (3.80-5.20); WHITE BLOOD COUNT 11.9 K/uL (4.1-10.2)
[2017-11-30 20:02] LABS: CHLORIDE 108 mEq/L (99-109); POTASSIUM 3.8 mEq/L (3.7-5.4); SODIUM 141 mEq/L (136-147)
[2017-11-30 20:04] LABS: GLUCOSE 109 mg/dL (70-99)
[2017-11-30 20:08] LABS: GFR ESTIMATE (CALCULATED) > 59 mL/min/
[2017-11-30 20:09] LABS: UREA NITROGEN (BUN) 14 mg/dL (9-23)
[2017-11-30 20:16] LABS: QUANTITATIVE HCG < 4.0 MIU/ML
[2017-11-30 22:29] LABS: APPEARANCE CLOUDY ((CLEAR)); BILIRUBIN NEGATIVE; BLOOD SMALL; COLOR AMBER ((YELLOW)); GLUCOSE (STRIP) NEGATIVE; KETONES NEGATIVE; LEUKOCYTES LARGE; NITRITE POSITIVE; PROTEIN (STRIP) 100; SPECIFIC GRAVITY 1.019 (1.000-1.030)
[2017-11-30 22:38] LABS: THC CANNABINOIDS PRESUMPTIVE POSITIVE (50 ng/mL)
[2017-11-30 22:39] LABS: AMPHETAMINE PRESUMPTIVE POSITIVE (500 ng/mL); BARBITURATES NEGATIVE (200 ng/mL); BENZODIAZEPINES PRESUMPTIVE POSITIVE (150 ng/mL); BUPRENORPHINE PRESUMPTIVE POSITIVE (10 ng/mL); COCAINE PRESUMPTIVE POSITIVE (150 ng/mL); METHADONE NEGATIVE (200 ng/mL); METHAMPHETAMINE NEGATIVE (500 ng/mL); OPIATES (MORPHINE) NEGATIVE (100 ng/mL); OXYCODONE NEGATIVE (100 ng/mL); PHENCYCLIDINE NEGATIVE (25 ng/mL); PROPOXYPHENE NEGATIVE (300 ng/mL); TRICYCLIC ANTIDEPRESSANTS NEGATIVE (300 ng/mL)
[2017-11-30 22:48] LABS: BACTERIA 3+ /HPF; MUCUS RARE /LPF; RED BLOOD CELLS 0-5 /HPF (0-5); WHITE BLOOD CELLS TNTC /HPF (0-5)
[2017-11-30 22:49] LABS: EPITHELIAL CELLS 3+ /HPF
[2017-11-30 23:17] LABS: BENZODIAZEPINES, URINE SCREEN Negative (200 ng/mL)
[2017-12-01 07:10] VITALS: BP 172/97
== END 2017-12-01 07:15 ==
LOC: EME 18:47
PROVIDERS: Nurse Practitioner Family
DX: R45.851 Suicidal ideations (principal); F32.9 Major depressive disorder, single episode, unspecified; N39.0 Urinary tract infection, site not specified; F25.0 Schizoaffective disorder, bipolar type; I12.9 Hypertensive chronic kidney disease with stage 1 through stage 4 chronic kidney disease, or unspecified chronic kidney disease; N18.9 Chronic kidney disease, unspecified; K21.9 Gastro-esophageal reflux disease without esophagitis; F60.3 Borderline personality disorder; F11.20 Opioid dependence, uncomplicated; F17.200 Nicotine dependence, unspecified, uncomplicated; Z79.899 Other long term (current) drug therapy
CPT/HCPCS: 80048; 81003; 84702; 84999; 85027; 90837; 99281; 99285; J0574; J3486

== ENCOUNTER 2017-12-10 16:38 | Inpatient (IN) | payer OTHER ==
[~2017-12-10] VITALS: Ht 167.6 cm; Wt 76.8 kg
[2017-12-11 01:16] VITALS: BP 122/64
[2017-12-11 08:21] VITALS: BP 123/66
[2017-12-11 16:56] VITALS: BP 115/70
[2017-12-12 07:43] VITALS: BP 106/56
[2017-12-12 10:46] LABS: BASOPHIL (%) 0.3 % (0-1); EOSINOPHIL (%) 0.9 % (0-5); EOSINOPHIL COUNT 0.1 K/uL (0-0.3); HEMATOCRIT 41.6 % (36.0-46.0); HEMOGLOBIN 13.9 G/DL (11.9-15.5); IMMATURE GRANULOCYTE (%) 0.3 % (0.0-0.7); LYMPHOCYTE (%) 26.6 % (15-42); LYMPHOCYTE COUNT 3.1 K/uL (1.0-2.8); MCH 31.5 PG (29.0-34.0); MCHC 33.4 G/DL (30.0-36.0); MONOCYTE (%) 5.6 % (3-12); MONOCYTE COUNT 0.7 K/uL (0-0.8); NEUTROPHIL (%) 66.3 % (45-76); NEUTROPHIL COUNT 7.8 K/uL (1.8-6.4); PLATELET COUNT 247 K/uL (156-360); RBC DIS.WIDTH-CV 12.6 % (11.8-14.6); RED BLOOD COUNT 4.41 M/uL (3.80-5.20); WHITE BLOOD COUNT 11.7 K/uL (4.1-10.2)
[2017-12-12 11:03] LABS: MCV 94.3 FL (83-99)
[2017-12-12 13:29] LABS: ALBUMIN 4.5 G/DL (3.2-4.8); ALKALINE PHOSPHATASE 73 IU/L (3-129); ALT (GPT) 7 IU/L (3-49); AST (GOT) 12 IU/L (2-34); CHLORIDE 103 MEQ/L (99-109); CREATININE 0.9 MG/DL (0.6-1.3); GFR ESTIMATE (CALCULATED) > 59 mL/min/; GLUCOSE 104 mg/dL (70-99); POTASSIUM 4.7 MEQ/L (3.7-5.4); SODIUM 137 MEQ/L (136-147); TOTAL BILIRUBIN 0.8 MG/DL (0.0-1.0); UREA NITROGEN (BUN) 12 mg/dL (9-23)
[2017-12-12 16:29] VITALS: BP 180/81
[2017-12-13 07:46] VITALS: BP 129/65
[2017-12-13 15:29] VITALS: BP 144/68
[2017-12-14 07:50] VITALS: BP 121/65
[2017-12-14 15:33] VITALS: BP 125/79
[2017-12-15 07:51] VITALS: BP 127/73
[2017-12-15 16:49] VITALS: BP 166/88
[2017-12-16 07:46] VITALS: BP 127/70
[2017-12-16 16:32] VITALS: BP 117/72
[2017-12-17 08:00] VITALS: BP 122/56
[2017-12-17 15:24] VITALS: BP 122/73
[2017-12-18 07:50] VITALS: BP 110/66
[2017-12-18 15:55] VITALS: BP 101/62
[2017-12-19 07:50] VITALS: BP 115/51
[2017-12-19 14:46] VITALS: BP 132/65
[2017-12-20 09:11] VITALS: BP 139/66
[2017-12-20 15:33] VITALS: BP 114/68
[2017-12-21 09:30] VITALS: BP 141/83
[2017-12-21 16:41] VITALS: BP 133/68
[2017-12-22 08:09] VITALS: BP 142/86
[2017-12-22] MEDS ORDERED: DULOXETINE HCL60 MG PO (09:51)
[2017-12-22] MEDS ORDERED: DIVALPROEX SOD500 MG PO (09:51)
[2017-12-22] MEDS ORDERED: PRAZOSIN HCL1 MG PO (09:51)
[2017-12-22] MEDS ORDERED: INDERAL20 MG PO (09:51)
[2017-12-22] MEDS ORDERED: QUETIAPINE FUM400 MG PO (09:51)
== END 2017-12-22 10:26 | disposition home or self-care (01) | DRG 885 ==
LOC: EME 16:38 → 1WEST 22:22 → EDOF 22:22 → ENRESERV 12-11 00:38 → 1WEST 12-11 01:02
PROVIDERS: Psychiatry & Neurology Psychiatry
DX: F25.0 Schizoaffective disorder, bipolar type (principal); R45.851 Suicidal ideations; F10.20 Alcohol dependence, uncomplicated; F90.9 Attention-deficit hyperactivity disorder, unspecified type; F11.20 Opioid dependence, uncomplicated; F15.14 Other stimulant abuse with stimulant-induced mood disorder; F15.122 Other stimulant abuse with intoxication with perceptual disturbance; F41.1 Generalized anxiety disorder; F17.200 Nicotine dependence, unspecified, uncomplicated; K21.9 Gastro-esophageal reflux disease without esophagitis; N18.9 Chronic kidney disease, unspecified; Z91.14 Patient's other noncompliance with medication regimen
CPT/HCPCS: 80048; 80053; 80164; 80306 90; 84702; 85025; 90839; 97150 GO; 97166 GO; 99281; 99285; G0480; J0574; Q0175; Q0177

== ENCOUNTER 2017-12-27 18:49 | Emergency (ER) | payer OTHER ==
[~2017-12-27] VITALS: Ht 167.6 cm; Wt 76.5 kg
[2017-12-27 20:14] LABS: BASOPHIL (%) 0.2 % (0-1); EOSINOPHIL (%) 0.3 % (0-5); HEMATOCRIT 37.6 % (36.0-46.0); HEMOGLOBIN 13.2 G/DL (11.9-15.5); IMMATURE GRANULOCYTE (%) 0.2 % (0.0-0.7); LYMPHOCYTE (%) 46.3 % (15-42); MCH 32.1 PG (29.0-34.0); MCHC 35.1 G/DL (30.0-36.0); MCV 91.5 FL (83-99); MONOCYTE (%) 10.1 % (3-12); MONOCYTE COUNT 0.9 K/uL (0-0.8); NEUTROPHIL (%) 42.9 % (45-76); NEUTROPHIL COUNT 3.7 K/uL (1.8-6.4); RBC DIS.WIDTH-CV 11.9 % (11.8-14.6); RBC DIS.WIDTH-SD 39.8 % (39-53); RED BLOOD COUNT 4.11 M/uL (3.80-5.20); WHITE BLOOD COUNT 8.6 K/uL (4.1-10.2)
[2017-12-27 20:21] LABS: CHLORIDE 106 mEq/L (99-109); POTASSIUM 3.7 mEq/L (3.7-5.4); SODIUM 141 mEq/L (136-147)
[2017-12-27 20:23] LABS: GLUCOSE 84 mg/dL (70-99)
[2017-12-27 20:26] LABS: SERUM ETHYL ALCOHOL < 10 mg/dL
[2017-12-27 20:27] LABS: CREATININE 0.9 mg/dL (0.6-1.3); GFR ESTIMATE (CALCULATED) > 59 mL/min/
[2017-12-27 20:28] LABS: UREA NITROGEN (BUN) 13 mg/dL (9-23)
[2017-12-27 20:58] LABS: ANISOCYTOSIS NONE SEEN; HEMATOLOGY COMMENT 1 SN; PLAT.SUFFICIENCY ADEQUATE
[2017-12-27 20:59] LABS: PLATELET COUNT 155 K/uL (156-360)
[2017-12-28 06:15] LABS: APPEARANCE SL.HAZY ((CLEAR)); BILIRUBIN NEGATIVE; BLOOD NEGATIVE; COLOR YELLOW ((YELLOW)); GLUCOSE (STRIP) NEGATIVE; KETONES 5; LEUKOCYTES SMALL; NITRITE NEGATIVE; PROTEIN (STRIP) 30; SPECIFIC GRAVITY 1.024 (1.000-1.030)
[2017-12-28 06:24] LABS: AMPHETAMINE PRESUMPTIVE POSITIVE (500 ng/mL); BARBITURATES NEGATIVE (200 ng/mL); BENZODIAZEPINES PRESUMPTIVE POSITIVE (150 ng/mL); COCAINE PRESUMPTIVE POSITIVE (150 ng/mL); METHADONE NEGATIVE (200 ng/mL); METHAMPHETAMINE NEGATIVE (500 ng/mL); OPIATES (MORPHINE) NEGATIVE (100 ng/mL); OXYCODONE NEGATIVE (100 ng/mL); PHENCYCLIDINE NEGATIVE (25 ng/mL); PROPOXYPHENE NEGATIVE (300 ng/mL); THC CANNABINOIDS NEGATIVE (50 ng/mL); TRICYCLIC ANTIDEPRESSANTS PRESUMPTIVE POSITIVE (300 ng/mL)
[2017-12-28 06:25] LABS: BUPRENORPHINE PRESUMPTIVE POSITIVE (10 ng/mL)
[2017-12-28 06:39] LABS: BACTERIA NONE SEEN /HPF; CALCIUM OXALATE CRYSTALS 1+ /HPF; EPITHELIAL CELLS 2+ /HPF; MUCUS TRACE /LPF; RED BLOOD CELLS 0-5 /HPF (0-5); WHITE BLOOD CELLS 0-5 /HPF (0-5)
[2017-12-28 08:27] LABS: BENZODIAZEPINES, URINE SCREEN Negative (200 ng/mL)
[2017-12-28 09:44] VITALS: BP 134/66
== END 2017-12-28 09:45 | disposition home or self-care (01) ==
LOC: EME 18:49
PROVIDERS: Emergency Medicine
DX: F25.0 Schizoaffective disorder, bipolar type (principal); F19.10 Other psychoactive substance abuse, uncomplicated; K21.9 Gastro-esophageal reflux disease without esophagitis; R56.9 Unspecified convulsions; F17.200 Nicotine dependence, unspecified, uncomplicated; Z87.19 Personal history of other diseases of the digestive system; Z86.73 Personal history of transient ischemic attack (TIA), and cerebral infarction without residual deficits
CPT/HCPCS: 80048; 81003; 84999; 85025; 90839; 99281; 99283; G0480; J1630; J2060

== ENCOUNTER 2018-01-09 05:30 | Inpatient (IN) | payer OTHER ==
[~2018-01-09] VITALS: Ht 167.6 cm; Wt 73.8 kg
[2018-01-09 08:38] LABS: BASOPHIL (%) 0.4 % (0-1); EOSINOPHIL (%) 1.2 % (0-5); EOSINOPHIL COUNT 0.1 K/uL (0-0.3); HEMATOCRIT 38.3 % (36.0-46.0); HEMOGLOBIN 13.4 G/DL (11.9-15.5); IMMATURE GRANULOCYTE (%) 0.3 % (0.0-0.7); LYMPHOCYTE (%) 47.8 % (15-42); LYMPHOCYTE COUNT 3.3 K/uL (1.0-2.8); MCH 32.1 PG (29.0-34.0); MCV 91.8 FL (83-99); MONOCYTE (%) 5.8 % (3-12); MONOCYTE COUNT 0.4 K/uL (0-0.8); NEUTROPHIL (%) 44.5 % (45-76); NEUTROPHIL COUNT 3.1 K/uL (1.8-6.4); PLATELET COUNT 137 K/uL (156-360); RBC DIS.WIDTH-SD 40.1 % (39-53); RED BLOOD COUNT 4.17 M/uL (3.80-5.20); WHITE BLOOD COUNT 6.9 K/uL (4.1-10.2)
[2018-01-09 08:47] LABS: CHLORIDE 105 mEq/L (99-109); POTASSIUM 3.2 mEq/L (3.7-5.4); SODIUM 139 mEq/L (136-147)
[2018-01-09 08:49] LABS: GLUCOSE 101 mg/dL (70-99)
[2018-01-09 08:52] LABS: CREATININE 0.8 mg/dL (0.6-1.3); GFR ESTIMATE (CALCULATED) > 59 mL/min/; SERUM ETHYL ALCOHOL < 10 mg/dL
[2018-01-09 08:54] LABS: UREA NITROGEN (BUN) 11 mg/dL (9-23)
[2018-01-09 08:56] LABS: ACETAMINOPHEN (TYLENOL) < 10 mcg/mL (10-30); SALICYLATE < 5.0 MG/DL (15-30)
[2018-01-09 11:41] LABS: COCAINE NEGATIVE (150 ng/mL); PHENCYCLIDINE NEGATIVE (25 ng/mL); THC CANNABINOIDS PRESUMPTIVE POSITIVE (50 ng/mL)
[2018-01-09 11:42] LABS: AMPHETAMINE PRESUMPTIVE POSITIVE (500 ng/mL); BARBITURATES NEGATIVE (200 ng/mL); BENZODIAZEPINES NEGATIVE (150 ng/mL); BUPRENORPHINE PRESUMPTIVE POSITIVE (10 ng/mL); METHADONE NEGATIVE (200 ng/mL); METHAMPHETAMINE NEGATIVE (500 ng/mL); OPIATES (MORPHINE) NEGATIVE (100 ng/mL); OXYCODONE NEGATIVE (100 ng/mL); PROPOXYPHENE NEGATIVE (300 ng/mL); TRICYCLIC ANTIDEPRESSANTS PRESUMPTIVE POSITIVE (300 ng/mL)
[2018-01-09 13:23] VITALS: BP 146/84
[2018-01-09 14:25] VITALS: BP 146/84
[2018-01-09 16:12] VITALS: BP 123/60; BP 153/92
[2018-01-09 21:18] VITALS: BP 163/76
[2018-01-10 15:09] VITALS: BP 111/61
[2018-01-11 07:41] VITALS: BP 106/54
[2018-01-11 15:14] VITALS: BP 98/54
[2018-01-12 07:38] VITALS: BP 118/58
[2018-01-12 09:12] LABS: QUANTITATIVE HCG < 4.0 MIU/ML
[2018-01-12 16:18] VITALS: BP 102/69
[2018-01-13 05:12] VITALS: BP 137/88
[2018-01-13 07:44] VITALS: BP 163/59
[2018-01-13 16:09] VITALS: BP 116/83
[2018-01-13 21:26] VITALS: BP 111/72
[2018-01-14 07:51] VITALS: BP 105/55
[2018-01-14 16:11] VITALS: BP 120/75
[2018-01-14 19:25] VITALS: BP 120/75
[2018-01-15 07:54] VITALS: BP 103/59
[2018-01-15 16:03] VITALS: BP 114/57
[2018-01-16 07:52] VITALS: BP 110/59
[2018-01-16] MEDS ORDERED: GABAPENTIN400 MG PO (09:01)
== END 2018-01-16 10:54 | disposition home or self-care (01) | DRG 885 ==
LOC: EME 05:30 → EDOF 11:32 → 1WEST 11:32 → ENRESERV 13:02 → 1WEST 13:19
PROVIDERS: Emergency Medicine
DX: F25.0 Schizoaffective disorder, bipolar type (principal); F11.23 Opioid dependence with withdrawal; K21.9 Gastro-esophageal reflux disease without esophagitis; Z91.19 Patient's noncompliance with other medical treatment and regimen; F12.90 Cannabis use, unspecified, uncomplicated; F15.90 Other stimulant use, unspecified, uncomplicated; R45.851 Suicidal ideations; L29.9 Pruritus, unspecified; F60.3 Borderline personality disorder; I10 Essential (primary) hypertension; F19.94 Other psychoactive substance use, unspecified with psychoactive substance-induced mood disorder; G47.00 Insomnia, unspecified; F17.200 Nicotine dependence, unspecified, uncomplicated
CPT/HCPCS: 80048; 80164; 84702; 84999; 85025; 90839; 97150 GO; 97165 GO; 99281; 99285; G0480; J0572; J0574

== ENCOUNTER 2018-01-20 07:58 | Emergency (ER) | payer OTHER ==
[~2018-01-20] VITALS: Ht 167.6 cm; Wt 71.9 kg
[2018-01-20 10:37] LABS: HEMATOCRIT 38.1 % (36.0-46.0); HEMOGLOBIN 13.3 G/DL (11.9-15.5); MCH 31.8 PG (29.0-34.0); MCHC 34.9 G/DL (30.0-36.0); MCV 91.1 FL (83-99); PLATELET COUNT 138 K/uL (156-360); RBC DIS.WIDTH-CV 11.9 % (11.8-14.6); RBC DIS.WIDTH-SD 39.6 % (39-53); RED BLOOD COUNT 4.18 M/uL (3.80-5.20); WHITE BLOOD COUNT 9.9 K/uL (4.1-10.2)
[2018-01-20 10:44] LABS: ALBUMIN 4.4 g/dL (3.2-4.8); CHLORIDE 105 mEq/L (99-109); POTASSIUM 3.7 mEq/L (3.7-5.4); SODIUM 139 mEq/L (136-147)
[2018-01-20 10:46] LABS: GLUCOSE 88 mg/dL (70-99); TOTAL PROTEIN 6.8 g/dL (6.4-8.3)
[2018-01-20 10:48] LABS: TOTAL BILIRUBIN 0.6 mg/dL (0.0-1.0)
[2018-01-20 10:49] LABS: SERUM ETHYL ALCOHOL < 10 mg/dL
[2018-01-20 10:50] LABS: ALKALINE PHOSPHATASE 66 IU/L (3-129); CREATININE 0.9 mg/dL (0.6-1.3); GFR ESTIMATE (CALCULATED) > 59 mL/min/
[2018-01-20 10:51] LABS: UREA NITROGEN (BUN) 13 mg/dL (9-23)
[2018-01-20 10:52] LABS: AST (GOT) 14 IU/L (2-34)
[2018-01-20 10:53] LABS: ALT (GPT) 9 IU/L (3-49)
[2018-01-20 10:59] LABS: QUANTITATIVE HCG < 4.0 MIU/ML
[2018-01-20 12:50] VITALS: BP 181/103
== END 2018-01-20 12:52 | disposition home or self-care (01) ==
LOC: EME 07:58
PROVIDERS: Emergency Medicine
DX: F29 Unspecified psychosis not due to a substance or known physiological condition (principal); F19.10 Other psychoactive substance abuse, uncomplicated; F20.9 Schizophrenia, unspecified; F11.10 Opioid abuse, uncomplicated; K21.9 Gastro-esophageal reflux disease without esophagitis; Z86.73 Personal history of transient ischemic attack (TIA), and cerebral infarction without residual deficits; F17.200 Nicotine dependence, unspecified, uncomplicated
CPT/HCPCS: 80053; 81003; 84702; 85027; 93005; 99281; 99284; G0480; J3486

== ENCOUNTER 2018-01-22 13:24 | Emergency (ER) | payer OTHER ==
[~2018-01-22] VITALS: Ht 167.6 cm; Wt 72.0 kg
[2018-01-22 14:13] LABS: APPEARANCE SL.HAZY ((CLEAR)); BILIRUBIN NEGATIVE; BLOOD NEGATIVE; COLOR AMBER ((YELLOW)); GLUCOSE (STRIP) NEGATIVE; KETONES NEGATIVE; LEUKOCYTES NEGATIVE; NITRITE NEGATIVE; PROTEIN (STRIP) 30; SPECIFIC GRAVITY 1.029 (1.000-1.030)
[2018-01-22 14:19] LABS: BACTERIA RARE /HPF; EPITHELIAL CELLS 2+ /HPF; MUCUS 2+ /LPF; UCUL ADDED? NO; WHITE BLOOD CELLS 0-5 /HPF (0-5)
[2018-01-22 14:34] LABS: AMPHETAMINE PRESUMPTIVE POSITIVE (500 ng/mL); BARBITURATES NEGATIVE (200 ng/mL); BENZODIAZEPINES NEGATIVE (150 ng/mL); BUPRENORPHINE PRESUMPTIVE POSITIVE (10 ng/mL); COCAINE NEGATIVE (150 ng/mL); METHADONE NEGATIVE (200 ng/mL); METHAMPHETAMINE NEGATIVE (500 ng/mL); OPIATES (MORPHINE) NEGATIVE (100 ng/mL); OXYCODONE NEGATIVE (100 ng/mL); PHENCYCLIDINE NEGATIVE (25 ng/mL); PROPOXYPHENE NEGATIVE (300 ng/mL); THC CANNABINOIDS NEGATIVE (50 ng/mL); TRICYCLIC ANTIDEPRESSANTS PRESUMPTIVE POSITIVE (300 ng/mL)
[2018-01-22 21:40] VITALS: BP 135/85
[2018-01-23] MEDS ORDERED: SEROQUEL100 MG PO (21:57)
== END 2018-01-22 21:42 | disposition home or self-care (01) ==
LOC: EME 13:24
PROVIDERS: Emergency Medicine
DX: R41.0 Disorientation, unspecified (principal); F19.90 Other psychoactive substance use, unspecified, uncomplicated; F25.0 Schizoaffective disorder, bipolar type; F60.3 Borderline personality disorder; I10 Essential (primary) hypertension; Z86.73 Personal history of transient ischemic attack (TIA), and cerebral infarction without residual deficits; F17.200 Nicotine dependence, unspecified, uncomplicated
CPT/HCPCS: 80053; 81003; 84999; 85025; 90839; 99281; 99285; G0480; J2060; J3486

== ENCOUNTER 2018-01-23 19:15 | Emergency (ER) | payer OTHER ==
[~2018-01-23] VITALS: Ht 167.6 cm; Wt 71.9 kg
[2018-01-23 21:07] LABS: HEMATOCRIT 39.5 % (36.0-46.0); HEMOGLOBIN 13.6 G/DL (11.9-15.5); MCH 31.6 PG (29.0-34.0); MCHC 34.4 G/DL (30.0-36.0); MCV 91.9 FL (83-99); PLATELET COUNT 181 K/uL (156-360); RBC DIS.WIDTH-CV 11.9 % (11.8-14.6); RBC DIS.WIDTH-SD 40.4 % (39-53); WHITE BLOOD COUNT 10.3 K/uL (4.1-10.2)
[2018-01-23 21:16] LABS: ALBUMIN 4.8 g/dL (3.2-4.8)
[2018-01-23 21:17] LABS: CHLORIDE 102 mEq/L (99-109); POTASSIUM 3.7 mEq/L (3.7-5.4); SODIUM 139 mEq/L (136-147)
[2018-01-23 21:19] LABS: GLUCOSE 80 mg/dL (70-99); TOTAL PROTEIN 7.4 g/dL (6.4-8.3)
[2018-01-23 21:22] LABS: ALKALINE PHOSPHATASE 79 IU/L (3-129); SERUM ETHYL ALCOHOL < 10 mg/dL
[2018-01-23 21:23] LABS: CREATININE 0.9 mg/dL (0.6-1.3); GFR ESTIMATE (CALCULATED) > 59 mL/min/
[2018-01-23 21:24] LABS: AST (GOT) 19 IU/L (2-34); UREA NITROGEN (BUN) 8 mg/dL (9-23)
[2018-01-23 21:26] LABS: ALT (GPT) 13 IU/L (3-49)
[2018-01-23 21:27] LABS: AMPHETAMINE PRESUMPTIVE POSITIVE (500 ng/mL); BENZODIAZEPINES PRESUMPTIVE POSITIVE (150 ng/mL); COCAINE NEGATIVE (150 ng/mL); METHAMPHETAMINE NEGATIVE (500 ng/mL); OPIATES (MORPHINE) NEGATIVE (100 ng/mL); PHENCYCLIDINE NEGATIVE (25 ng/mL); THC CANNABINOIDS NEGATIVE (50 ng/mL)
[2018-01-23 21:28] LABS: BARBITURATES NEGATIVE (200 ng/mL); BUPRENORPHINE PRESUMPTIVE POSITIVE (10 ng/mL); METHADONE NEGATIVE (200 ng/mL); OXYCODONE NEGATIVE (100 ng/mL); PROPOXYPHENE NEGATIVE (300 ng/mL); TRICYCLIC ANTIDEPRESSANTS PRESUMPTIVE POSITIVE (300 ng/mL)
[2018-01-23 21:32] LABS: QUANTITATIVE HCG < 4.0 MIU/ML
[2018-01-23 21:56] LABS: BENZODIAZEPINES, URINE SCREEN POSITIVE (200 ng/mL)
[2018-01-23] MEDS ORDERED: SEROQUEL100 MG PO (21:57)
[2018-01-23 22:34] VITALS: BP 154/92
== END 2018-01-23 22:36 | disposition home or self-care (01) ==
LOC: EME → EDBD 19:15 → EME 19:15
PROVIDERS: Emergency Medicine
DX: F25.0 Schizoaffective disorder, bipolar type (principal); F19.10 Other psychoactive substance abuse, uncomplicated; Z00.8 Encounter for other general examination; K21.9 Gastro-esophageal reflux disease without esophagitis; F17.200 Nicotine dependence, unspecified, uncomplicated; Z79.891 Long term (current) use of opiate analgesic; Z86.73 Personal history of transient ischemic attack (TIA), and cerebral infarction without residual deficits
CPT/HCPCS: 80053; 84702; 84999; 85027; 90839; 99281; 99284; G0480

== ENCOUNTER 2018-01-24 01:00 | Emergency (ER) | payer OTHER ==
[~2018-01-24] VITALS: Ht 167.6 cm; Wt 71.9 kg
[2018-01-24 05:01] VITALS: BP 138/72
== END 2018-01-24 05:04 | disposition home or self-care (01) ==
LOC: EME 01:00
DX: F25.9 Schizoaffective disorder, unspecified (principal); K21.9 Gastro-esophageal reflux disease without esophagitis; R56.9 Unspecified convulsions; F17.200 Nicotine dependence, unspecified, uncomplicated; Z86.73 Personal history of transient ischemic attack (TIA), and cerebral infarction without residual deficits; Z87.19 Personal history of other diseases of the digestive system
CPT/HCPCS: 90839; 99281; 99284; G0480

== ENCOUNTER 2018-01-26 11:44 | Emergency (ER) | payer OTHER ==
[~2018-01-26] VITALS: Ht 165.1 cm; Wt 72.0 kg
[2018-01-26 11:55] VITALS: BP 132/91
[2018-01-26 12:49] LABS: BASOPHIL (%) 0.2 % (0-1); EOSINOPHIL (%) 1.8 % (0-5); EOSINOPHIL COUNT 0.2 K/uL (0-0.3); HEMATOCRIT 41.4 % (36.0-46.0); HEMOGLOBIN 13.8 G/DL (11.9-15.5); IMMATURE GRANULOCYTE (%) 0.2 % (0.0-0.7); MCH 31.5 PG (29.0-34.0); MCHC 33.3 G/DL (30.0-36.0); MCV 94.5 FL (83-99); MONOCYTE (%) 9.9 % (3-12); MONOCYTE COUNT 0.8 K/uL (0-0.8); NEUTROPHIL (%) 63.9 % (45-76); NEUTROPHIL COUNT 5.4 K/uL (1.8-6.4); RBC DIS.WIDTH-CV 11.9 % (11.8-14.6); RBC DIS.WIDTH-SD 41.5 % (39-53); RED BLOOD COUNT 4.38 M/uL (3.80-5.20); WHITE BLOOD COUNT 8.5 K/uL (4.1-10.2)
[2018-01-26 12:50] LABS: PLATELET COUNT 240 K/uL (156-360)
[2018-01-26 13:01] LABS: CHLORIDE 108 mEq/L (99-109); POTASSIUM 3.4 mEq/L (3.7-5.4); SODIUM 144 mEq/L (136-147)
[2018-01-26 13:03] LABS: GLUCOSE 66 mg/dL (70-99)
[2018-01-26 13:06] LABS: SERUM ETHYL ALCOHOL < 10 mg/dL
[2018-01-26 13:07] LABS: CREATININE 0.9 mg/dL (0.6-1.3); GFR ESTIMATE (CALCULATED) > 59 mL/min/
[2018-01-26 13:08] LABS: UREA NITROGEN (BUN) 7 mg/dL (9-23)
== END 2018-01-26 14:25 | disposition home or self-care (01) ==
LOC: EME 11:44
PROVIDERS: Emergency Medicine
DX: F25.0 Schizoaffective disorder, bipolar type (principal); F41.9 Anxiety disorder, unspecified; F60.3 Borderline personality disorder; F11.20 Opioid dependence, uncomplicated; K21.9 Gastro-esophageal reflux disease without esophagitis; Z86.73 Personal history of transient ischemic attack (TIA), and cerebral infarction without residual deficits; F17.200 Nicotine dependence, unspecified, uncomplicated
CPT/HCPCS: 80048; 81003; 85025; 90837; 99281; 99284; G0480

== ENCOUNTER 2018-01-28 12:05 | Emergency (ER) | payer OTHER ==
[~2018-01-28] VITALS: Ht 162.6 cm; Wt 72.0 kg
[2018-01-28 13:15] VITALS: BP 146/100
== END 2018-01-28 13:20 | disposition home or self-care (01) ==
LOC: EME 12:05
DX: F25.0 Schizoaffective disorder, bipolar type (principal); F60.3 Borderline personality disorder; F15.20 Other stimulant dependence, uncomplicated; F13.20 Sedative, hypnotic or anxiolytic dependence, uncomplicated; F11.20 Opioid dependence, uncomplicated; K21.9 Gastro-esophageal reflux disease without esophagitis; F17.200 Nicotine dependence, unspecified, uncomplicated; Z86.73 Personal history of transient ischemic attack (TIA), and cerebral infarction without residual deficits
CPT/HCPCS: 90837; 99281; 99284